=== PATIENT | female | born 1950 | race Caucasian/White ===

== ENCOUNTER 2019-06-18 10:35 | Outpatient (CLI) | payer MEDICARE ==
--- NOTE | 2019-06-18 11:44 | CT ---
CT OF ABDOMEN AND PELVIS PERFORMED WITH CONTRAST ENHANCEMENT: HISTORY: Abdominal pain. It started in May with bloating. The patient also has a history of hysterectomy an d a benign tumor removed from the abdomen in 2014. COMPARISON: None. FINDINGS: The lung bases are clear. Small hypodensities within the left lobe of the liver most compatible with cysts. Also a small hypod ense lesion in the right lobe near the gallbladder is also seen also most compatible with a cyst. Th e spleen pancreas regions are unremarkable. There is a subtle area of decreased attenuation near the gallbladder neck. This could represent a small stone in this region. Ultrasound would be required for assessment. Right and left adrenal glands and right and left kidneys are normal in size. There is no significant periaortic or mesenteric lymphadenopathy. There are no bowel wall abnormalities noted. CT OF PELVIS PERFORMED WITH CONTRAST ENHANCEMENT: No adenopathy, mass, or free fluid. Post-hysterectomy changes are seen. The appendix appears unrema rkable. IMPRESSION: 1. Benign-appearing hepatic cysts. 2. No acute abnormalities of the abdomen or pelvis. 3. Questionable small gallstone. POS: [facility]
== END 2019-06-18 10:36 | disposition home or self-care (01) ==
LOC: BICCT 10:35
PROVIDERS: ATTEND Family Medicine
DX: R10.13 Epigastric pain (principal); K76.89 Other specified diseases of liver
CPT/HCPCS: 74177

== ENCOUNTER 2019-06-23 11:07 | Outpatient (CLI) | payer MEDICARE ==
--- NOTE | 2019-06-23 14:28 | MMO ---
Bilateral MAMMO Bilat Screen [facility]. CLINICAL HISTORY: Patient is 69 years old and is seen for screening. The patient has no family history of breast cancer. The patient has no personal history of cancer. VIEWS: The views performed were: bilateral craniocaudal with tomosynthesis and bilateral mediolateral oblique with tomosynthesis. MAMMOGRAM FINDINGS: The breasts are heterogeneously dense, which could obscure a lesion on mammography. There are stable benign appearing calcifications seen in both breasts. There are no suspicious masses, suspicious calcifications, or new areas of architectural distortion. IMPRESSION: THERE IS NO MAMMOGRAPHIC EVIDENCE OF MALIGNANCY. A ROUTINE FOLLOW-UP MAMMOGRAM IN 1 YEAR IS RECOMMENDED. THE RESULTS OF THIS EXAM WERE SENT TO THE PATIENT. ACR BI-RADS Category 2 - Benign finding MAMMOGRAPHY NOTE: 1. A negative mammogram report should not delay a biopsy if a dominant of clinically suspicious mass is present. 2. Approximately 10% to 15% of breast cancers are not detected by mammography. 3. Adenosis and dense breasts may obscure an underlying neoplasm. Reported by: OBED GOLDSTEIN MD Electonically Signed: [id number]
== END 2019-06-23 11:08 | disposition home or self-care (01) ==
LOC: BICMAMMO 11:07
PROVIDERS: ATTEND Family Medicine
DX: Z12.31 Encounter for screening mammogram for malignant neoplasm of breast (principal)
CPT/HCPCS: 77063; 77067

== ENCOUNTER 2019-08-14 08:23 | Outpatient (CLI) | payer MEDICARE ==
--- NOTE | 2019-08-14 09:13 | CT ---
CT Aortic Dissection Protocol History: Pain. R 10.13 epigastric pain Comparison: CT abdomen and pelvis June 18, 2019 Findings: The aortic contour is nonaneurysmal. No dissection. No pericardial effusion. Right and left pulmonary arteries are mildly dilated suggesting pulmonary arterial hypertension. There is a hypodensity of the superior right lobe of thyroid first nonemergent ultrasound is recommen ded. There are multiple hepatic cysts. Due to the arterial phase of contrast there is hyperenhancement of the gallbladder mucosal as well as focal fatty sparing along the gallbladder fossa. Mild hypertrophy of the adrenal glands. No hydronephrosis. The superior mesenteric artery, celiac trunk, and inferior mesenteric arteries are patent. Renal atif monica are patent. No free intraperitoneal gas or fluid in the abdomen. No thoracic or lumbar spine acute compression de formity. Chronic appearing superior endplate height loss at T12. Mild scarring in the lung apices. No suspicious pulmonary nodule. No pneumothorax. No effusion. No co nsolidation. Impression: 1. No aortic dissection or aneurysm. 2. Hypodensity superior right posterior thyroid for which nonemergent ultrasound recommended. 3. Benign simple cysts of the liver. 4. Linear area of fatty sparing along the gallbladder fossa. 5. No acute intrathoracic abnormality.
[2019-08-14] MEDS ORDERED: Iopamidol 370 76% 100 ML VIAL ONE (12:44)
== END 2019-08-14 08:24 | disposition home or self-care (01) ==
LOC: CT 08:23
PROVIDERS: ATTEND Family Medicine
DX: R10.13 Epigastric pain (principal); N28.1 Cyst of kidney, acquired
CPT/HCPCS: 71275; 72191; 74175; 82565; Q9967

== ENCOUNTER 2019-08-21 14:12 | Outpatient (CLI) | payer MEDICARE ==
--- NOTE | 2019-08-21 15:42 | ULT ---
THYROID ULTRASOUND: INDICATION: Abnormal thyroid lesion found on recent CT evaluation. COMPARISON: CT aortic dissection protocol dated 08/14/2019. FINDINGS: The right thyroid lobe measures 5.5 x 2.0 x 1.6 cm. The left thyroid lobe measured 4.5 x 1.9 x 1.3 c m. The thyroid isthmus measured 4.4 mm. There are multiple small nodules seen throughout both thyroid glands. One of the largest nodules cor responds to the CT abnormality and is seen within the superior pole of the right thyroid lobe measuri ng 1.9 x 1.9 x 1.4 cm. This lesion is predominantly hyperechoic, well-circumscribed, wider than tall , without associated calcifications consistent with a TIRADS 3 lesion. Other additional smaller JOSE ALEJANDRO DS 3 lesions are seen within the right thyroid lobe. Two additional nodules are seen within the mid right gland measuring 5 x 5 mm. An additional nodule seen within the mid to lower right thyroid glan d measures 7.8 x 4.9 mm. There is a 7 mm and 3 mm nodule within the superior pole left thyroid lobe. Additional 4 mm thyroid nodule is seen within the superior to mid left thyroid lobe. IMPRESSION: 1. Multinodular goiter. 2. TIRADS 3 lesion involving the superior pole of the right thyroid lobe corresponds to the abnormal ity seen on the CT aortic dissection protocol examination. Due to its size, would recommend followup thyroid ultrasound in 1 year. The other smaller thyroid lesions denoted in the examination require no ultrasound followup. POS: [facility]
== END 2019-08-21 14:13 | disposition home or self-care (01) ==
LOC: BICULT 14:12
PROVIDERS: ATTEND Family Medicine
DX: E04.2 Nontoxic multinodular goiter (principal); E07.89 Other specified disorders of thyroid
CPT/HCPCS: 76536

== ENCOUNTER 2019-09-04 03:32 | Inpatient (IN) | payer MEDICARE ==
[2019-09-04] MEDS ORDERED: Aspirin Chewable 81 MG TAB ONE (03:45)
[2019-09-04 03:50] LABS: #Basophils 0.1 thou/uL (0.0-0.2); #Eosinphils 0.3 thou/uL (0.0-0.7); #Lymphocytes 5.3 thou/uL (1.20-3.40); #Neutrophils 6.2 thou/uL (1.40-6.50); %Eosinophils 2.3 % (0.0-10.0); %Lymphocytes 40.9 % (21.0-51.0); %Monocytes 7.6 % (0.0-10.0); %Neutrophils 48.2 % (42.0-75.0); Hemoglobin 15.9 g/dL (12.0-16.0); Mean Corpuscular HGB CONC 33.1 g/dL (32.0-36.0); Mean Corpuscular Hemoglobin 30.4 pg (27.0-31.0); Mean Corpuscular Volume 91.6 fL (78.0-98.0); Mean Platelet Volume 7.7 fL (7.4-10.4); Platelet Count 380 thou/uL (130-400); RBC Distribution Width 12.1 % (11.5-14.5); Red Blood Cell (RBC) Count 5.23 mill/uL (4.20-5.40); White Blood Cell (WBC) Count 12.9 thou/uL (4.8-10.8)
[2019-09-04 04:14] LABS: ALT (SGPT) 12 U/L (8-55); AST (SGOT) 14 U/L (5-34); Albumin 4.5 g/dL (3.4-4.8); Alkaline Phosphatase 77 U/L (40-110); Anion Gap 14 mmol/L (10-20); BUN (Urea Nitrogen) 12 mg/dL (9.8-20.1); Bilirubin, Total 0.4 mg/dL (0.2-1.2); CK (CPK) 47 U/L (29-168); Calc. Creatinine Clearance 0 mL/min (70-130); Carbon Dioxide 26 mmol/L (23-31); Chloride 105 mmol/L (98-107); Estimated GFR-MDRD 64; Globulin 3.2 g/dL (2.4-3.5); Glucose 107 mg/dL (80-115); Lipase 43 U/L (8-78); Potassium 3.9 mmol/L (3.5-5.1); Protein, Total 7.7 g/dL (6.0-8.3); Sodium 141 mmol/L (136-145)
[2019-09-04] MEDS ORDERED: Ondansetron PF 4 MG/2 ML Vial ONE ×2 (04:29→04:41)
[2019-09-04 05:31] VITALS: BMI 25.4
[2019-09-04 05:33] LABS: Bacteria/HPF None Seen HPF (None Seen); Bilirubin Negative (Negative); Blood, Urine Trace (Negative); Clarity Clear (Clear); Glucose, Urine (Dipstick) Normal (Negative); Leukocyte Negative Leu/uL (Negative); Nitrite Negative (Negative); Protein, Urine (Dipstick) Negative (Neg-Trace); RBC/HPF 0-3 HPF (0-3); Squamous Epithelial 0-3 HPF (0-3); Urobilinogen Normal mg/dL (Less than 2); WBC/HPF 0-3 HPF (0-3)
[2019-09-04 07:12] LABS: Troponin I Less than 0.010 ng/mL (< 0.028)
[2019-09-04] MEDS ORDERED: HYDROcodone/Acetaminophen 5/325 mg Tablet PO PRN (07:42)
[2019-09-04] MEDS ORDERED: Ondansetron PF 4 MG/2 ML Vial IVP PRN (07:46)
--- NOTE | 2019-09-04 08:13 | RAD ---
SINGLE VIEW CHEST: Date: 09/01/19 COMPARISON: 02/16/17. HISTORY: Mid sternal chest pain. FINDINGS: Single view of the chest shows a normal sized cardiomediastinal silhouette. There is no evidence of c onsolidation, mass, or pleural effusion. The bones are unremarkable. IMPRESSION: No evidence of acute cardiopulmonary disease. POS: [facility]
[2019-09-04] MEDS ORDERED: Sodium Chloride 0.9% (PF) 10 ML VIAL FS PRN (08:15)
[2019-09-04] MEDS ORDERED: Pantoprazole 40 MG VIAL IVP SCH (09:00)
[2019-09-04] MEDS: Sodium Chloride 0.9% 1,000 ML IV SCH ×2 (10:06→21:17)
[2019-09-04] MEDS: Pantoprazole 40 MG VIAL IVP SCH ×2 (10:06→19:52)
[2019-09-04 10:19] LABS: Troponin I Less than 0.010 ng/mL (< 0.028)
--- NOTE | 2019-09-04 10:29 | HP ---
CHIEF COMPLAINT: Nausea, vomiting, abdominal pain. HISTORY OF PRESENT ILLNESS: The patient is a 69-year-old female, who is admitted to the hospital with above-mentioned complaints. Apparently, she started having the same kind of pain in May. She went to her primary care physician, Dr. Yin, who did a CT of the abdomen, which showed some questionable changes in her gallbladder, but nothing major. Subsequently, she had few episodes of similar pain, which was associated with some radiation of the pain to her back, between her shoulders, shoulder blades, and she had followed up with Dr. Yin, who did a CT angiogram on her, which came back negative, which showed some thyroid nodules, which she is going to have followup with him with another sonogram for evaluation. She denied any fever or chills. There was no any shortness of breath. Her surrogate decision maker is the patient's daughter, Angie. MEDICATION: Omeprazole 20 mg once a day. PAST MEDICAL HISTORY: Osteoporosis. PAST SURGICAL HISTORY: 1. Abdominal mass removed in 2014, benign. 2. Hysterectomy. 3. Bone removed from the right hip and placed in the right arm for graft. SOCIAL HISTORY: She smokes about half a pack of cigarettes per day for 40 to 50 years. She denies use any of illicit drugs. She drinks socially. ALLERGIES: SHE IS NOT ALLERGIC TO ANYTHING. FAMILY HISTORY: Positive for cardiovascular disease. REVIEW OF SYSTEMS: All 14 systems were reviewed and they were negative except for symptoms mentioned in HPI. PHYSICAL EXAMINATION: VITAL SIGNS: Blood pressure is 132/63, pulse is 53, respirations 22, temperature is 97.5, O2 saturation is 97 on room air. Her pain level is around 7. HEENT: Her head is atraumatic and normocephalic. Eyes are PERRLA. Sclerae are nonicteric. Conjunctivae are reddish. Oral mucosa is slightly dry. NECK: Supple. LUNGS: Clear. HEART: S1 and S2, normal. No S3. No S4. ABDOMEN: Tender in the mid epigastric area with some guarding, her abdomen is quite tight and also tender in the left lower quadrant. EXTREMITIES: No clubbing, cyanosis, or edema. NEUROLOGIC: She follows my commands. She moves her all 4 extremities. There are no any motor or sensory deficits. LABORATORY DATA: Showed white count of 12.9. The rest of chemistry is within normal limits. Urinalysis showed trace of blood. EKG personally reviewed by me showed normal sinus rhythm, no ischemic changes. Chest x-ray personally reviewed by me and it did not show any acute cardiovascular abnormalities. IMPRESSION: Recurrent nausea, vomiting, and abdominal pain, which sounds like peptic ulcer disease to me. We will start her on IV PPI and get aircraft engine technician involved. We will have her on IV fluids and start her on hydrocodone for pain relief and also we will do ultrasound of the abdomen and she will be on clear liquids. Job ID: [id number]
[2019-09-04] MEDS ORDERED: Lidocaine 1% PF 5 ML VIAL ONE (11:38)
[2019-09-04] MEDS ORDERED: PROPOFOL 200 MG/20 ML VIAL ONE (11:38)
--- NOTE | 2019-09-04 11:57 | ULT ---
ABDOMINAL ULTRASOUND: HISTORY: Abdominal pain. TECHNIQUE: Real-time imaging of the upper abdomen was performed. FINDINGS: This shows echogenic foci with shadowing within the gallbladder, consistent with multiple stones. The gallbladder wall is slightly thickened, in the 4 mm range. The common duct measures 5 mm. The liver is 15.7 cm in length. There are couple of small, approximately 1 cm cysts present. The spleen measur es 9.2 cm. The pancreas is partially obscured. The abdominal aorta and IVC regions are unremarkable. The right and left kidneys are within normal limits in size and not obstructed. IMPRESSION: Multiple cholelithiasis with a normal caliber common duct. POS: [facility]
--- NOTE | 2019-09-04 13:18 | CON ---
DATE OF CONSULTATION: 09/04/2019 REQUESTING PHYSICIAN: Nirmal Jean MD REASON FOR CONSULTATION: Chest and abdominal pain. HISTORY OF PRESENT ILLNESS: Britt Joyner is a 69-year-old woman, who was admitted to the hospital early this morning with persistent worsening chest pain and abdominal pain. She reports no significant past gastrointestinal history. She had a large ovarian cyst with torsion and underwent surgery for this back in 2014 elsewhere. She had a hysterectomy prior to that. Back at the end of May, she started having episodes of chest pain radiating to the back and also involving the epigastrium. There has been associated nausea and occasional nonbloody emesis with this. She had several episodes in May, a couple of episodes in June and July, but then throughout the month of August, she was having episodes far more frequently getting more severe. In the past few days, the pain has been more constant and this prompted her presentation. She has had some workup over the past few months. On 06/18/2019, CT of the abdomen and pelvis just demonstrated some benign hepatic cyst as well as a gallstone in the gallbladder lumen, but was otherwise normal. On 08/14/2019, CT angiogram was essentially negative. She was trialed on omeprazole 20 mg daily for the past couple of months. She says she really cannot tell that this is making any difference. She denies classic heartburn or dysphagia or change in bowel habits. Upon presentation, she has a mild leukocytosis with WBC 12.9, but otherwise normal CBC and CMP, normal lipase. Chest x-ray shows no acute processes and an ultrasound shows cholelithiasis, gallbladder wall of 4 mm, normal common bile duct of 5 mm. She has been n.p.o. since early this morning. REVIEW OF SYSTEMS: Full review of systems including constitutional, head, eyes, ears, nose, throat, GI, , cardiovascular, respiratory, musculoskeletal, and neurologic systems are negative except as noted in the HPI. PAST MEDICAL HISTORY: Osteoporosis, hysterectomy, and surgery to remove giant ovarian cyst with torsion back in 2014. ALLERGIES: NO KNOWN DRUG ALLERGIES. OUTPATIENT MEDICATIONS: Omeprazole 20 mg daily. FAMILY HISTORY: Positive for cardiovascular disease. SOCIAL HISTORY: She smokes a half a pack cigarettes per day for the past 40 to 50 years. Social alcohol use. No illicit drug use. PHYSICAL EXAMINATION: VITAL SIGNS: Temperature 97.5, pulse 57, blood pressure 89/48, and 97% oxygen saturation on room air. GENERAL: A 69-year-old woman, lying in bed comfortably, in no acute distress. SKIN: No jaundice. No rashes were palpable. HEENT: Eyes, no scleral icterus. Extraocular movements intact. ENT, mucous membranes moist. No oral lesions. LYMPH: No submandibular or supraclavicular lymphadenopathy. THYROID: Nontender to palpation. HEART: Regular rate and rhythm. LUNGS: Clear to auscultation bilaterally. ABDOMEN: Surgical scar well-healed in midline lower abdomen. Bowel sounds are present. The abdomen is soft. There is some tenderness to palpation in the epigastrium, but no guarding or rebound tenderness. EXTREMITIES: No peripheral edema. VESSELS: Radial pulses 2+ bilaterally. NEURO: Cranial nerves 2 through 12 intact bilaterally. No focal deficits. LABORATORY STUDIES: WBC 12.9, hemoglobin 15.9, and platelets 380. Sodium 141, potassium 3.9, BUN 12, creatinine 0.87, total bilirubin 0.4, alkaline phosphatase 77, AST 14, ALT 12, albumin 4.5, and lipase 43. Troponin negative x2. Urinalysis negative. IMAGING STUDIES: Chest x-ray shows no acute processes. Abdominal ultrasound shows cholelithiasis. There is some mild gallbladder wall thickening to 4 mm. Normal common bile duct of 5 mm in diameter. Prior CT imaging as detailed in the HPI. ASSESSMENT AND PLAN: 1. Chest pain, recurrent. 2. Epigastric pain. 3. Nausea and vomiting. Symptoms were all escalating over the past several months despite omeprazole 20 mg daily. I note imaging demonstrates cholelithiasis, but there is no LFT elevation or lipase. Consider upper GI mucosal pathology. We will plan for diagnostic esophagogastroduodenoscopy and try to get this done later this afternoon. If this yields an explanation for her symptoms, we will treat accordingly. If the esophagogastroduodenoscopy was completely normal, then I would consider surgical evaluation for consideration of cholecystectomy. Thank you for the consultation. Further recommendations following endoscopy. Please call anytime with questions or concerns. Job ID: [id number]
--- NOTE | 2019-09-04 16:24 | OP ---
DATE OF PROCEDURE: 09/04/2019 CHEMIC MANGLER SURGEON: None. PROCEDURE PERFORMED: Esophagogastroduodenoscopy with biopsies. INDICATION: 1. Chest pain, atypical. 2. Epigastric pain. 3. Nausea and vomiting. MEDICATIONS: See Anesthesia record. FINDINGS: After discussion of the risks, benefits, and alternatives of the procedure, informed consent was obtained and witnessed. Pre-endoscopic cardiopulmonary examination was satisfactory. Time-out was performed before sedation was achieved. Sedation was achieved with Anesthesia assistance in the endoscopy unit. A Pentax adult upper endoscope was placed into the oropharynx and passed through the cricopharyngeus under direct visualization. The esophageal mucosa appeared normal throughout with a normal-appearing Z-line. The endoscope was advanced into the stomach. Forward and retroflexed views of the entire gastric mucosa were obtained. The gastric mucosa showed some mild erythema and friability in a patchy distribution in the gastric body. There were no erosions or ulcerations noted. I obtained biopsies from the gastric antrum and body to rule out H. pylori infection. The endoscope was advanced beyond the pylorus and into the first and second portions of the duodenum, which appeared normal. There were no endoscopic findings to correlate with the severity of the patient's symptoms. The upper endoscope was completely withdrawn and the patient allowed to recover. The patient tolerated the procedure well. There were no immediate postprocedure complications. IMPRESSION: 1. Mild nonerosive gastritis in the gastric body. Biopsied to rule out H. pylori. 2. Otherwise normal esophagogastroduodenoscopy. RECOMMENDATIONS: 1. Advance diet. 2. Continue daily PPI. 3. Follow up gastric biopsies. If H. pylori is present, treat with triple therapy and confirm eradication. 4. There were no endoscopic findings to explain the severity of the patient's symptoms. Consider surgical referral for consideration of cholecystectomy, given the ultrasound finding of cholelithiasis. Job ID: [id number]
[2019-09-04] MEDS: Senokot S 8.6-50 MG TAB PO SCH (19:51)
[2019-09-04] MEDS ORDERED: FLU VACC TS2019-20(65YR UP)/PF 180 MCG/0.5 ML SYRINGE IM ONE (21:00)
[2019-09-05] MEDS: Senokot S 8.6-50 MG TAB PO SCH ×2 (09:34→20:11)
[2019-09-05] MEDS: Pantoprazole 40 MG VIAL IVP SCH ×2 (09:34→20:12)
[2019-09-05] MEDS: Sodium Chloride 0.9% 1,000 ML IV SCH ×3 (09:34→22:26)
[2019-09-05] MEDS ORDERED: Dexamethasone 20 MG/5 ML VIAL ONE (10:42)
[2019-09-05] MEDS ORDERED: Glycopyrrolate 0.2 MG/ML 5 ML SYRINGE ONE (10:42)
[2019-09-05] MEDS ORDERED: Rocuronium Bromide 10 MG/ML (10ML VIAL) ONE (10:42)
[2019-09-05] MEDS ORDERED: PROPOFOL 200 MG/20 ML VIAL ONE (10:42)
[2019-09-05] MEDS ORDERED: Ondansetron PF 4 MG/2 ML Vial ONE (10:42)
[2019-09-05] MEDS ORDERED: Lidocaine 1% PF 5 ML VIAL ONE (10:42)
[2019-09-05] MEDS ORDERED: Bupivacaine/Epinephrine 0.25% 30 ML VIAL ONE (12:42)
[2019-09-05] MEDS ORDERED: Midazolam HCl 2 mg/2 ml Vial ONE (12:51)
[2019-09-05] MEDS ORDERED: Sodium Chloride 0.9% 100 ML ONE (13:07)
[2019-09-05] MEDS ORDERED: cefOXitin 2 GM VIAL ONE (13:07)
[2019-09-05] MEDS ORDERED: Fentanyl 100 MCG/2 ML VIAL ONE ×2 (13:23→15:04)
--- NOTE | 2019-09-05 14:04 | CON ---
DATE OF CONSULTATION: 09/05/2019 REQUESTING PHYSICIAN: Nirmal Jean MD HISTORY OF PRESENT ILLNESS: This is a 69-year-old woman, who presented to the emergency department with recurrent postprandial epigastric right upper quadrant abdominal pain over the last 4 months. The pain was usually aggravated by eating and awakens the patient in the morning. Over the last 1 month, the pain has become more frequent and intense, usually epigastric in nature, radiating to the back and right shoulder. The patient presented yesterday with severe epigastric abdominal pain, which started shortly before breakfast. This was associated with multiple episodes of nausea and nonbilious emesis. The patient had dinner the previous night consisting of hamburgers and salad with ranch dressing. She endorses recent abdominal bloating and frequent flatulence. She had a normal bowel movement, however, yesterday. The patient denies any fevers or chills. She underwent upper endoscopy yesterday, which only showed mild erosive gastritis without any other significant pathology. PAST MEDICAL HISTORY: Pertinent for osteoporosis and gastroesophageal reflux disease. PAST SURGICAL HISTORY: Pertinent for total abdominal hysterectomy in 1979 and right salpingo-oophorectomy in 2014 for an ovarian torsion. Other pertinent surgical history includes repair of forearm deformity using a bone graft from the right hip. SOCIAL HISTORY: She is retired and admits to smoking about half pack of cigarettes per day for over 30 years. She admits to occasional intake of ethanol in moderate amount and denies any illicit drug abuse. FAMILY HISTORY: Noncontributory for this patient's age. PREHOSPITALIZATION MEDICATION: Includes omeprazole 40 mg p.o. daily. ALLERGIES: THE PATIENT DENIES ANY KNOWN DRUG ALLERGIES. REVIEW OF SYSTEMS: Ten-point review of systems essentially unremarkable, except as stated in past medical history and chief complaint. PHYSICAL EXAMINATION: GENERAL: This reveals a 69-year-old normally developed woman, who is otherwise coherent, interactive, and appears stated age. The patient is alert and oriented x3, appears to be in no acute distress at the time of my evaluation. VITAL SIGNS: Today includes blood pressure 102/49, pulse 58, respiratory rate 16, temperature 97.4 degrees Fahrenheit, oxygen saturation 98% on room air. HEENT: Reveals normocephalic and atraumatic. Pupils are equal, round, reactive to light and accommodation. Extraocular muscles are intact bilaterally. She has no scleral icterus present. HEART: Reveals regular rate and rhythm. No murmurs or gallops auscultated. LUNGS: Clear to auscultation bilaterally. Her breathing is regular and nonlabored. ABDOMEN: Soft with moderate epigastric to right upper quadrant tenderness to palpation. LIVER AND SPLEEN: Nonpalpable below costal margin. EXTREMITIES: Reveal 2+ radial and pedial pulses bilaterally. No ankle edema is present. NEUROLOGIC: Reveals no focal deficits present. LABORATORY FINDINGS: Include a CBC yesterday with 12,900 white blood cells, hemoglobin and hematocrit 15.9 and 47.9 respectively. Platelet count 380,000. Metabolic profile; sodium is 141, potassium is 3.9, chloride is 105, bicarb is 26, BUN is 12, creatinine is 0.87, glucose is 107. Total bilirubin is 0.4, AST and ALT are normal at 14 and 12 respectively. Alkaline phosphatase and lipase are also normal at 77 and 43 respectively. IMAGING STUDIES: I have personally reviewed the abdominal ultrasound, which is remarkable for multiple intraluminal gallstones. Gallbladder wall is thickened. There is no pericholecystic fluid noted. Common bile duct is normal for this patient's age at 5.1 mm in diameter. IMPRESSION: Acute on chronic cholecystitis with cholelithiasis. PLAN: Laparoscopic cholecystectomy. Above findings and plan have been discussed with the patient and her adult daughter at bedside. I have informed the patient of the risks and benefits of the proposed surgery to include, but not limited to bleeding, infection, injury to bile duct or surrounding structures. The patient indicates understanding of information given. I have answered her questions. The patient is going to consent for the surgical intervention. Thank you again, Dr. Jean, for allowing me the opportunity to participate in the care of this patient. Job ID: [id number]
[2019-09-05] MEDS ORDERED: SUGAMMADEX SODIUM 200 MG/2 ML VIAL ONE (14:44)
[2019-09-05] MEDS ORDERED: Meperidine HCl/PF 25 MG/ML VIAL SLOW IVP PRN (14:58)
[2019-09-05] MEDS ORDERED: Promethazine HCl 25 MG/ML VIAL IM PRN (14:58)
[2019-09-05] MEDS ORDERED: Promethazine HCl 25 MG/ML VIAL SLOW IVP PRN (14:58)
[2019-09-05] MEDS ORDERED: PACU-Morphine 4MG/ML VIAL SLOW IVP PRN (14:58)
--- NOTE | 2019-09-05 15:50 | OP ---
DATE OF PROCEDURE: 09/05/2019 PREOPERATIVE DIAGNOSES: 1. Acute on chronic cholecystitis. 2. Cholelithiasis. POSTOPERATIVE DIAGNOSES: 1. Acute on chronic cholecystitis. 2. Cholelithiasis. PROCEDURE PERFORMED: Laparoscopic cholecystectomy. ANESTHESIA: General endotracheal. ESTIMATED BLOOD LOSS: 10 mL. FLUIDS GIVEN: 2000 mL crystalloids. COUNTS: Sponge and instrument counts were verified as correct x2. COMPLICATIONS: None apparent. INDICATIONS FOR OPERATION: A 69-year-old woman with recurrent postprandial epigastric right upper quadrant abdominal pain, who was brought to the operating room today for cholecystectomy given findings of acute cholecystitis with cholelithiasis. Findings are consistent with distended gallbladder in the usual anatomic location, partially encased by omental adhesions. Additionally, multiple small bowel adhesions are encountered involving the intra-abdominal wall along the line of the previous abdominal operation. DESCRIPTION OF PROCEDURE: Informed consent was obtained from the patient, who was brought to the operating room and placed in supine position. Following general anesthesia, abdomen was sterilely prepped and draped in usual fashion. Skin below the umbilicus was infiltrated with 0.25% Marcaine with epinephrine. A small curvilinear infraumbilical incision was made using 11 scalpel. Umbilical stalk grasped with Curt and elevated. Veress needle was inserted through the incision and placed in the peritoneal cavity through which the abdomen was insufflated with 3 L of CO2 gas. Intra-abdominal pressure noted at 2 mmHg. Following abdominal insufflation, Veress needle was removed and a 5 mm trocar introduced using a Visiport under laparoscopy. Laparoscopy confirmed proper placement of the port, no injuries to underlying structures. Additional laparoscopy revealed gallbladder in the usual anatomic location, partially encased by omental adhesions. Under direct laparoscopy, a 12 mm epigastric and two 5 mm right lateral subcostal ports were placed after the overlying skin were infiltrated with 0.25% Marcaine with epinephrine. Appropriate incision was made. The patient was placed in a reverse Trendelenburg position, rotated to her left. I introduced a Prestige grasper through the right lateral subcostal port grasping the fundus of the gallbladder, which was elevated cephalad. Using [place] dissector with cautery, omental adhesions were taken down off the gallbladder. A second Prestige grasper was introduced through the right medial subcostal port grasping the Sid's pouch, which was retracted laterally. Cystic duct was carefully dissected free from surrounding structures at the triangle of Calot. The duct was divided between clips applying 2 clips proximally and one clip at the junction of the cystic duct and gallbladder. Cystic artery was dissected free from surrounding structures and divided between clips in a similar fashion. The gallbladder itself was removed from the liver bed using cautery with good hemostasis. Gallbladder was delivered off the abdominal cavity using an EndoCatch. Operative site was inspected for good hemostasis. Finding no other pathology, laparoscopy was terminated. Operative site was irrigated with saline. Fascia of the epigastric port was closed using 0 Vicryl suture and endo-closure device on the laparoscopy. Abdomen was desufflated. All ports and instruments removed and accounted for. Skin incision was closed using 4-0 Monocryl suture in subcuticular fashion. Dermabond was applied over incisional closure. The patient tolerated the operation without any apparent complication and was returned to recovery room in satisfactory condition. Job ID: [id number]
[2019-09-05] MEDS: Acetaminophen 500 MG TAB PO SCH ×2 (16:28→20:11)
[2019-09-05 16:42] LABS: Hemoglobin 13.9 g/dL (12.0-16.0); Mean Corpuscular HGB CONC 32.7 g/dL (32.0-36.0); Mean Corpuscular Hemoglobin 30.5 pg (27.0-31.0); Mean Platelet Volume 7.9 fL (7.4-10.4); Platelet Count 304 thou/uL (130-400); RBC Distribution Width 12.1 % (11.5-14.5); Red Blood Cell (RBC) Count 4.55 mill/uL (4.20-5.40); White Blood Cell (WBC) Count 11.9 thou/uL (4.8-10.8)
[2019-09-05 17:13] LABS: Band 7 % (5-11); Eosinophils 1 % (0-10); Lymphocytes 12 % (21-51); MDiff Complete? YES; Monocytes 2 % (0-10); Neutrophil 76 % (42-75); Platelet Morphology Comment Appears Adequate; RBC Morphology Normal
--- NOTE | 2019-09-05 17:39 | PRG ---
DATE OF SERVICE: 09/05/2019 SUBJECTIVE: The patient is seen and examined at bedside. She just came back from OR from her laparoscopic cholecystectomy. She complains about some abdominal soreness in the area, where she had surgery. Otherwise, she is feeling okay. OBJECTIVE: VITAL SIGNS: Blood pressure is 126/57, pulse is 60, temperature is 97.4, respirations 16, and O2 saturation is 95% on 3 L by nasal cannula. HEENT: Her pupils are responding to light properly. Sclerae are nonicteric. LUNGS: Clear. HEART: S1 and S2 normal. ABDOMEN: Mildly distended. Tender to moderate palpation, three points of entry, not bleeding. Bowel sounds not audible. EXTREMITIES: No clubbing, cyanosis, or edema. NEUROLOGIC: She is alert and oriented x4. There is no any motor or sensory deficits. LABORATORY DATA: Labs from this morning showed white count of 11.9, hemoglobin 13.9, hematocrit 42.3, platelet count is 304,000. IMAGING STUDIES: Abdominal ultrasound was done, which showed multiple cholelithiasis with normal caliber common duct. IMPRESSION: 1. Recurrent abdominal pain, status post EGD with basically negative findings. 2. Acute on chronic cholecystitis. 3. Cholelithiasis, status post laparoscopic cholecystectomy. 4. History of osteoporosis. PLAN: Continue observation overnight. Postop care per General Surgery Team, but I believe that she is going to start having diet and it will be advanced as soon as she is doing fine. Tomorrow, she should be able to go home. Job ID: [id number]
[2019-09-05] MEDS: Ketorolac Tromethamine 30 MG/ML VIAL IVP SCH ×2 (19:21→23:23)
[2019-09-05] MEDS: traMADol HCl 50 MG TAB PO PRN (22:19)
[2019-09-06] MEDS: traMADol HCl 50 MG TAB PO PRN ×4 (01:13→22:14)
[2019-09-06] MEDS: Melatonin 3 MG TAB PO PRN (01:15)
[2019-09-06] MEDS: Acetaminophen 500 MG TAB PO SCH ×2 (02:12→08:17)
[2019-09-06] MEDS ORDERED: Morphine 2 MG/ML SYRINGE SLOW IVP SCH (05:15)
[2019-09-06] MEDS: Ketorolac Tromethamine 30 MG/ML VIAL IVP SCH ×3 (05:42→17:32)
[2019-09-06 06:19] LABS: ALT (SGPT) 58 U/L (8-55); AST (SGOT) 38 U/L (5-34); Alkaline Phosphatase 64 U/L (40-110); Anion Gap 11 mmol/L (10-20); BUN (Urea Nitrogen) 8 mg/dL (9.8-20.1); Bilirubin, Direct 0.2 mg/dL (0.1-0.3); Bilirubin, Total 0.5 mg/dL (0.2-1.2); Calc. Creatinine Clearance 64 mL/min (70-130); Calcium 8.5 mg/dL (7.8-10.44); Carbon Dioxide 21 mmol/L (23-31); Chloride 111 mmol/L (98-107); Estimated GFR-MDRD 75; Glucose 137 mg/dL (80-115); Potassium 4.1 mmol/L (3.5-5.1); Protein, Total 6.7 g/dL (6.0-8.3); Sodium 139 mmol/L (136-145)
[2019-09-06] MEDS: Senokot S 8.6-50 MG TAB PO SCH ×2 (08:18→20:50)
[2019-09-06] MEDS: Pantoprazole 40 MG VIAL IVP SCH ×2 (08:18→20:50)
[2019-09-06] MEDS ORDERED: Ketorolac Tromethamine 30 MG/ML VIAL ONE (09:12)
[2019-09-06] MEDS ORDERED: Ketorolac Tromethamine 30 MG/ML VIAL IVP SCH (09:15)
[2019-09-06] MEDS: Sodium Chloride 0.9% 1,000 ML IV SCH ×2 (10:46→23:08)
--- NOTE | 2019-09-06 12:19 | RAD ---
PORTABLE AP CHEST: Date: 09/06/19 HISTORY: Abdominal pain. COMPARISON: 09/04/19. FINDINGS: This exam is obtained in a shallow depth of inspiration, which in combination with portable technique accentuates cardiac silhouette and bronchovascular markings. There is suggestion of increased densit y at the right lung base, which could be related to atelectasis or pleural effusion. Subsegmental ate lectasis is now present at the left lung base. No other interval change. IMPRESSION: Interval development of subsegmental atelectasis at the left lung base with suggestion of increased d ensity at the right lung base. This is also likely attributable to atelectasis; although, pleural eff usion cannot be excluded. Given shallow depth of inspiration, follow-up chest x-ray with better depth of inspiration is recommended. POS: OFF
--- NOTE | 2019-09-06 12:22 | RAD ---
AP ABDOMINAL RADIOGRAPH; Date: 09/06/19 HISTORY: Abdominal pain. COMPARISON: None. FINDINGS: The bowel gas pattern is overall nonspecific. Surgical clips overlie the right upper quadrant. Degene rative changes are seen in the spine. No suspicious calcifications are identified. IMPRESSION: Nonspecific bowel gas pattern. POS: OFF
--- NOTE | 2019-09-06 12:35 | CT ---
CT ANGIOGRAM THORAX WITH IV CONTRAST AND 3D RECONSTRUCTIONS: HISTORY: Chest pain as well as abdominal pain. Recent cholecystectomy. COMPARISON: CTA chest on 08/14/2019. FINDINGS: No filling defects are seen in the pulmonary arteries to suggest a pulmonary embolus. The thoracic aorta is normal in caliber without evidence of an aortic dissection. There is trace pleural effusion on the right. There are parenchymal changes seen dependently at each lung base, which is probably related to atelectasis. Atelectasis is also seen in the region of the li ngula. No discrete pulmonary nodule or mass is visualized. There is no evidence of lymphadenopathy. As noted on the prior examination there is a heterogeneous nodule seen involving the posterior aspect , superior portion of the thyroid gland, which measures 1.9 cm. There is partial visualization of subcutaneous emphysema in the epigastric region with linear densiti es present, likely related to recent post surgical changes. These findings are better visualized on C T abdomen. Subcentimeter hypodense lesions are seen in the left hepatic lobe, unchanged from the study on 2018 and are suggestive of cysts. IMPRESSION: 1. Heterogeneous node, right lobe of the thyroid gland. Non-emergent thyroid ultrasound is recommende d, as suggested on prior study. 2. No CT evidence of a pulmonary embolus. The thoracic aorta is normal in caliber without evidence of an aortic dissection. 3. Trace right pleural effusion with bibasilar parenchymal changes, likely related to bibasilar atele ctasis, greater on the right. POS: OFF
--- NOTE | 2019-09-06 12:42 | CT ---
CT ABDOMEN WITH IV CONTRAST: HISTORY: Abdominal pain after recent cholecystectomy. The patient also complains of chest pain and epigastric abdominal pain. COMPARISON: CTA abdomen on 08/14/2019. FINDINGS: As noted on the CTA chest, also obtained on this date, there is trace with pleural effusion with pare nchymal bibasilar densities present, probably attributable to atelectasis. Small, hypodense lesions are again seen in the left hepatic lobe, stable from prior study, as well as the study on 06/18/2019, and are suggestive of small hepatic cysts. Post cholecystectomy changes are now present. A tiny amount of fluid is seen adjacent to the right he patic lobe. There is no fluid collection seen in the gallbladder fossa and there is only minimal stra nding in this region, likely attributable to the recent post surgical changes. Within the anterior ab dominal wall, just to the right of midline, are foci of gas and stranding and a small amount of fluid , likely related to recent post surgical change. A single punctate focus of gas is seen anterior to t he liver, which is also likely attributable to post surgical changes. The spleen, pancreas, bilateral adrenal glands and kidneys demonstrate a normal CT appearance. There is subcutaneous emphysema and stranding in a periumbilical location with gas also seen within t he anterior aspect of the abdomen with a tiny amount of fluid within the mesentery, at the level of t he umbilicus, which is also likely related to recent post surgical changes. There is a low density ar ea in the more inferior aspect, right paracolic gutter, in the upper pelvis, incompletely imaged, and may represent a small amount of fluid or volume averaging with a loop of bowel. This is unable to be further evaluated. There is mild thickening involving a portion of the ascending colon, in the region of the hepatic fle xure. This is probably attributable to incomplete distention as opposed to colitis. Degenerative changes are seen in the spine. IMPRESSION: 1. Post surgical changes related to recent cholecystectomy. Trace amount of fluid adjacent to the genevieve er and in the right paracolic gutter. 2. Trace right pleural effusion with bibasilar parenchymal densities, probably related to bibasilar a telectasis. 3. Foci of gas within the abdomen is likely related to recent cholecystectomy. Clinical correlation i s recommended. 4. Suggested colonic wall thickening in the region of the hepatic flexure, which is probably related to incomplete distention. Colitis could not be entirely excluded. POS: OFF
[2019-09-06] MEDS ORDERED: ISOVUE-370 76%-LOCM 1 ML ONE (13:16)
[2019-09-06] MEDS: Piperacillin/Tazobactam 3.375 GM in Sodium Chloride 0.9% 100 ML IVPB SCH ×2 (14:03→20:49)
--- NOTE | 2019-09-06 14:05 | PRG ---
DATE OF SERVICE: 09/06/2019 SUBJECTIVE: The patient is seen and examined at the bedside. She was seen by Dr. Goldberg, for evaluation since she developed pain in the shoulder and abdomen. She had laparoscopic cholecystectomy done yesterday. OBJECTIVE: VITAL SIGNS: Blood pressure is 99/55, pulse is 82, respirations 20, O2 saturation is 92% on room air, temperature is 97.9. HEENT: Sclerae are nonicteric. Conjunctivae are pinkish. Oral mucosa is slightly dry. NECK: Supple. LUNGS: Clear. HEART: S1 and S2 are normal. ABDOMEN: Mildly distended. Tender in the epigastric area, mainly with some guarding in this area. Incisions for laparoscopy look good. Bowel sounds are sluggish. EXTREMITIES: No clubbing, cyanosis, or edema. NEUROLOGIC: She is alert and oriented x4. There are no any motor or sensory deficits. LABORATORY DATA: Sodium of 139, potassium 4.1, chloride 111, CO2 of 21, BUN 8, creatinine 0.76, glucose 137, AST 38, ALT 58. BNP 249.3. Troponin I less than 0.010. Serum total protein 6.7, albumin 4.0, cortisol 29.5. Abdominal x-ray showed nonspecific bowel gas pattern. Chest x-ray showed some atelectasis at the left lung base along with right lower lobe infiltrate, which could be representing a small pleural effusion. CT angiogram of the chest showed: 1. No PE. 2. Trace of the right pleural effusion with small bibasilar parenchymal changes. 3. Heterogeneous node in the right lobe of the thyroid gland. CT of the abdomen showed: 1. Postsurgical changes related to recent cholecystectomy and a trace amount of fluid adjacent to the liver and in the right paracolic gutter. 2. Trace right pleural effusion with bibasilar parenchymal densities, probably related to bibasilar atelectasis. 3. Foci of gas within the abdomen are likely related to recent cholecystectomy. 4. Suggested colonic wall thickening in the region of the hepatic flexure, which is probably related to incomplete distention. IMPRESSION: 1. Recurrent abdominal pain with nausea and vomiting, felt to be related to [id number] cholecystitis, status post laparoscopic cholecystectomy for cholelithiasis along with cholecystitis. 2. History of osteoporosis. 3. Recurrent abdominal pain postoperatively of unclear etiology at this point. Negative workup so far. The patient is supposed to have HIDA scan ordered by Dr. Goldberg, general surgeon. We will continue our workup, and we will continue pain management. Job ID: [id number]
[2019-09-06] MEDS: Acetaminophen 1,000 MG in Premix Bag 1 BAG IVPB SCH (17:34)
--- NOTE | 2019-09-06 17:53 | PRG ---
DATE OF SERVICE: 09/06/2019 SUBJECTIVE: Ms. Joyner is a 69-year-old woman, who is postoperative day #1, status post laparoscopic cholecystectomy. This morning, she is awake and alert, complaining of severe epigastric abdominal pain radiating to her right shoulder. This was associated with some dyspnea and wheezing. She received breathing treatment and that resolved the wheezing. She continued to have severe abdominal pain despite intravenous analgesics. She is making adequate urine for her age. OBJECTIVE: VITAL SIGNS: Her vital signs this morning include blood pressure 109/56, pulse 65, respiratory rate 20, temperature 97.3 degrees Fahrenheit, and oxygen saturation 91% on room air. HEENT: Pupils are equal, round, and reactive to light and accommodation. NECK: No jugular venous distention noted. HEART: Regular rate and rhythm. No murmurs or gallops auscultated. LUNGS: Clear to auscultation bilaterally. Breathing regular and nonlabored. ABDOMEN: Soft and exquisitely tender to palpation with gross rebound tenderness present. Bowel sounds are present, but hypoactive. Incisions are intact, clean, and dry. NEUROLOGIC: No focal deficits present. LABORATORY FINDINGS: CBC with 11,900 white blood cells, hemoglobin and hematocrit 13.9 and 42.3 respectively, and platelet count is 304,000. Differential count as follows; 76 segmented neutrophils, 7 bands, 12 lymphocytes, 2 monocytes, and 1 eosinophil. Metabolic profile; sodium 139, potassium 4.1, chloride is 111, bicarb 21, BUN 8, creatinine 0.76, and glucose 137. Total bilirubin 0.5, AST and ALT marginally elevated at 38 and 58 respectively, and alkaline phosphatase is normal at 64. CT scan of the chest was obtained today with contrast and excluded presence of any pulmonary embolism. CT scan of the abdomen and pelvis was also obtained, which reveals a scant amount of pneumoperitoneum and free fluid, not in excess of what should be expected postoperative day #1 from a laparoscopic procedure. ASSESSMENT AND PLAN: Given high index of suspicion for small-bowel injury in the presence of extensive amount of small bowel adhesions to the anterior abdominal wall, we will initiate antibiotic therapy and continue with serial physical examination as the patient's abdominal pain appears to be resolving. She is now tolerating a clear liquid diet and ambulating with minimum difficulty. Her vital signs have otherwise remained stable. No further surgical indication at this time. Job ID: [id number]
[2019-09-07] MEDS: Ketorolac Tromethamine 30 MG/ML VIAL IVP SCH ×2 (00:06→05:46)
[2019-09-07] MEDS: Acetaminophen 1,000 MG in Premix Bag 1 BAG IVPB SCH ×3 (00:07→12:53)
[2019-09-07] MEDS: Melatonin 3 MG TAB PO PRN (00:08)
--- NOTE | 2019-09-07 02:28 | PRG ---
DATE OF SERVICE: 09/07/2019 SUBJECTIVE: The patient is postoperative day 1, status post laparoscopic cholecystectomy. The patient reportedly had some significant epigastric pain this morning that she underwent evaluation and was noted to have a normal EKG. Her troponins were less than 0.010 x3. She did have a slightly elevated BNP. Her CT scan of her abdomen and pelvis showed a scant amount of pneumoperitoneum and free fluid that was not in excess of what would be expected postoperatively from a laparoscopic procedure. The patient remains afebrile. Her pain has improved over the day. She is tolerating clears. There is no bowel movement reported yet. OBJECTIVE: VITAL SIGNS: Appear stable, albeit the patient's systolic primarily is in the 90s to low 100s. This appears to be consistent throughout her visit. She remains afebrile. GENERAL: The patient appears to be resting comfortable. She is asleep at the time of my visit. I did not wake her to examine her. ASSESSMENT/PLAN: 1. Status post laparoscopic cholecystectomy. 2. Acute postoperative pain. Plan will be to follow her labs and vitals and increase her diet as tolerated. The patient will be encouraged to ambulate and we will await her bowel function to return. Job ID: [id number]
[2019-09-07] MEDS: Piperacillin/Tazobactam 3.375 GM in Sodium Chloride 0.9% 100 ML IVPB SCH ×4 (03:45→20:41)
[2019-09-07 05:33] LABS: Anion Gap 11 mmol/L (10-20); BUN (Urea Nitrogen) 8 mg/dL (9.8-20.1); Band 30 % (5-11); Calc. Creatinine Clearance 60 mL/min (70-130); Carbon Dioxide 23 mmol/L (23-31); Chloride 111 mmol/L (98-107); Estimated GFR-MDRD 70; Glucose 114 mg/dL (80-115); Hemoglobin 12.9 g/dL (12.0-16.0); Lymphocytes 15 % (21-51); MDiff Complete? YES; Magnesium 1.7 mg/dL (1.6-2.6); Mean Corpuscular HGB CONC 32.6 g/dL (32.0-36.0); Mean Corpuscular Hemoglobin 30.1 pg (27.0-31.0); Mean Corpuscular Volume 92.5 fL (78.0-98.0); Mean Platelet Volume 8.2 fL (7.4-10.4); Monocytes 5 % (0-10); Neutrophil 50 % (42-75); Phosphorus 3.5 mg/dL (2.3-4.7); Platelet Count 266 thou/uL (130-400); Platelet Morphology Comment Appears Adequate; Potassium 3.9 mmol/L (3.5-5.1); RBC Distribution Width 12.3 % (11.5-14.5); Red Blood Cell (RBC) Count 4.27 mill/uL (4.20-5.40); Sodium 141 mmol/L (136-145)
[2019-09-07 08:09] LABS: Hemoglobin 13.4 g/dL (12.0-16.0); Mean Corpuscular HGB CONC 32.8 g/dL (32.0-36.0); Mean Corpuscular Hemoglobin 30.5 pg (27.0-31.0); Mean Corpuscular Volume 93.1 fL (78.0-98.0); Mean Platelet Volume 7.9 fL (7.4-10.4); Platelet Count 264 thou/uL (130-400); RBC Distribution Width 12.1 % (11.5-14.5); Red Blood Cell (RBC) Count 4.38 mill/uL (4.20-5.40); White Blood Cell (WBC) Count 12.8 thou/uL (4.8-10.8)
[2019-09-07 08:31] LABS: ALT (SGPT) 49 U/L (8-55); AST (SGOT) 28 U/L (5-34); Albumin 3.2 g/dL (3.4-4.8); Alkaline Phosphatase 62 U/L (40-110); Anion Gap 14 mmol/L (10-20); BUN (Urea Nitrogen) 8 mg/dL (9.8-20.1); Bilirubin, Direct 0.7 mg/dL (0.1-0.3); Bilirubin, Total 1.1 mg/dL (0.2-1.2); Calc. Creatinine Clearance 62 mL/min (70-130); Calcium 8.1 mg/dL (7.8-10.44); Carbon Dioxide 21 mmol/L (23-31); Chloride 109 mmol/L (98-107); Estimated GFR-MDRD 72; Glucose 120 mg/dL (80-115); Potassium 3.5 mmol/L (3.5-5.1); Protein, Total 5.6 g/dL (6.0-8.3); Sodium 140 mmol/L (136-145)
[2019-09-07 08:39] LABS: Band 24 % (5-11); Lymphocytes 9 % (21-51); MDiff Complete? YES; Monocytes 1 % (0-10); Myelocyte 1 % (0-0); Neutrophil 64 % (42-75); RBC Morphology Normal; Reactive Lymphocytes 1 % (0-10)
[2019-09-07] MEDS: Pantoprazole 40 MG VIAL IVP SCH ×2 (09:42→20:41)
[2019-09-07] MEDS: Polyethylene Glycol 3350 17 GM Packet PO SCH (09:42)
[2019-09-07] MEDS: Senokot S 8.6-50 MG TAB PO SCH ×2 (09:42→20:40)
--- NOTE | 2019-09-07 13:55 | PRG ---
DATE OF SERVICE: 09/07/2019 SUBJECTIVE: The patient is seen and examined at the bedside. She is improving since yesterday. She did her walking. Amount of abdominal discomfort has significantly decreased, but she is still not passing any gas. She tried some laxatives and it did not really make her go. OBJECTIVE: VITAL SIGNS: Blood pressure is 111/57, pulse is 96, respiratory rate is 18, O2 saturation is 94% on room air. HEENT: Head is atraumatic and normocephalic. Eyes are PERRLA. Sclerae are not icteric. Oral mucosa is moist. NECK: Supple. LUNGS: Clear. HEART: S1, S2 normal. No S3. No S4. ABDOMEN: Slightly distended and bowel sounds are very sluggish. EXTREMITIES: No clubbing, cyanosis, or edema. NEUROLOGIC: She is alert and oriented x4. There is no any motor or sensory deficits. LABORATORY DATA: Labs showed white count of 12.8, hemoglobin of 13.4, hematocrit 40.8, platelet count is 264,000. Sodium of 140, potassium 3.5, chloride 105, CO2 of 21, BUN 8, creatinine 0.79. Liver function tests within normal limits. IMPRESSION: 1. Recurrent abdominal pain, felt to be related to acute on chronic cholecystitis, status post laparoscopic cholecystectomy for cholelithiasis along with cholecystitis. 2. History of osteoporosis. DISCUSSION: HIDA scan was canceled by Dr. Goldberg. She seems to be improving. It sounds like she needs more time and her bowel function should come back in the next probably 24 hours. As soon as we see that function to come back, she should be able to go home. For now, we will observe for additional 24 hours. Job ID: [id number]
[2019-09-07] MEDS ORDERED: Ibuprofen 200 MG TAB PO PRN (16:37)
[2019-09-07] MEDS: Acetaminophen 325 MG TAB PO SCH ×2 (17:57→23:40)
[2019-09-07] MEDS: traMADol HCl 50 MG TAB PO PRN (23:43)
[2019-09-08] MEDS ORDERED: Ketorolac Tromethamine 30 MG/ML VIAL IVP SCH (02:00)
[2019-09-08] MEDS: Piperacillin/Tazobactam 3.375 GM in Sodium Chloride 0.9% 100 ML IVPB SCH ×4 (02:10→19:51)
[2019-09-08] MEDS: traMADol HCl 50 MG TAB PO PRN ×2 (06:06→19:49)
[2019-09-08] MEDS: Acetaminophen 325 MG TAB PO SCH ×4 (06:07→23:22)
[2019-09-08 07:56] LABS: Hemoglobin 13.2 g/dL (12.0-16.0); Mean Corpuscular HGB CONC 32.7 g/dL (32.0-36.0); Mean Corpuscular Volume 91.8 fL (78.0-98.0); Platelet Count 285 thou/uL (130-400); RBC Distribution Width 12.2 % (11.5-14.5); Red Blood Cell (RBC) Count 4.39 mill/uL (4.20-5.40); White Blood Cell (WBC) Count 16.2 thou/uL (4.8-10.8)
[2019-09-08 08:12] LABS: Anion Gap 12 mmol/L (10-20); BUN (Urea Nitrogen) 9 mg/dL (9.8-20.1); Calc. Creatinine Clearance 68 mL/min (70-130); Calcium 8.4 mg/dL (7.8-10.44); Carbon Dioxide 21 mmol/L (23-31); Chloride 107 mmol/L (98-107); Estimated GFR-MDRD 80; Glucose 89 mg/dL (80-115); Magnesium 1.9 mg/dL (1.6-2.6); Potassium 3.1 mmol/L (3.5-5.1); Sodium 137 mmol/L (136-145)
[2019-09-08 08:28] LABS: MDiff Complete? YES; RBC Morphology Normal
[2019-09-08 08:32] LABS: Band 27 % (5-11); Lymphocytes 8 % (21-51); Neutrophil 60 % (42-75)
[2019-09-08 08:33] LABS: Metamyelocyte 1 % (0-0); Monocytes 4 % (0-10)
[2019-09-08] MEDS ORDERED: Potassium Phosphate 30 MMOL in Sodium Chloride 0.9% 250 ML 250 ML IVPB SCH (08:45)
[2019-09-08] MEDS: Pantoprazole 40 MG VIAL IVP SCH ×2 (08:47→19:52)
[2019-09-08] MEDS: Senokot S 8.6-50 MG TAB PO SCH ×2 (08:47→19:50)
[2019-09-08] MEDS: Polyethylene Glycol 3350 17 GM Packet PO SCH (08:47)
[2019-09-08] MEDS ORDERED: Fluconazole In NaCl,Iso-Osm 400 MG in Premix Bag 1 BAG IVPB SCH (09:00)
[2019-09-08] MEDS: Lactated Ringer's 1,000 ML IV SCH ×2 (10:36→19:54)
[2019-09-08] MEDS ORDERED: Succinylcholine Chloride 20 MG/ML 10 ml SYRINGE FS ONE (12:15)
[2019-09-08] MEDS ORDERED: Rocuronium Bromide 10 MG/ML (10ML VIAL) ONE (12:15)
[2019-09-08] MEDS ORDERED: PROPOFOL 200 MG/20 ML VIAL ONE (12:15)
[2019-09-08] MEDS ORDERED: Lidocaine 1% PF 5 ML VIAL ONE (12:15)
--- NOTE | 2019-09-08 14:24 | PRG ---
DATE OF SERVICE: 09/08/2019 SUBJECTIVE: The patient is seen and examined at the bedside. During my visit, is present in the room. She complains both abdominal distention, and she got bowel movement this morning and started passing some gas, but she feels quite miserable with amount of bloating she has in her abdomen. OBJECTIVE: VITAL SIGNS: Blood pressure is 124/58, pulse is 99, temperature is 97.8, respirations are 24, and O2 saturation is 95% on room air. She is afebrile. HEENT: Her head is atraumatic and normocephalic. Eyes are PERRLA. Sclerae are nonicteric. Oral mucosa is slightly dry. NECK: Supple. LUNGS: Clear. HEART: S1 and S2 normal. ABDOMEN: Distended. Bowel sounds are present. There is a tympanic sound on percussion all over her abdomen. No guarding, but she is quite sensitive all over her abdomen to palpation. EXTREMITIES: No clubbing, cyanosis, or edema. NEUROLOGIC: She follows my commands. She moves her all 4 extremities. There is no any motor or sensory deficit. LABORATORY DATA: White count is up to 16.2, hemoglobin is 13.2, hematocrit is 40.3, platelet count is 285,000, bands are 27. Chemistry; sodium 137, potassium 3.1, chloride 107, CO2 of 21, BUN 9, creatinine 0.72, phosphorus 2.0. Gallbladder pathology specimen showed acute and chronic cholecystitis and cholelithiasis. IMPRESSION: 1. Recurrent abdominal pain, found to be caused by a chronic and acute cholecystitis and cholelithiasis status post laparoscopic cholecystectomy now with some complication with retained gas in her GI tract. The patient has a long history of constipation and most likely this is the factor which is causing her to respond that way. 2. History of osteoporosis. 3. Hypokalemia, for replacement. Continue IV fluids. Job ID: [id number]
--- NOTE | 2019-09-08 18:29 | EKG ---
Test Reason : Blood Pressure : / mmHG Vent. Rate : 081 BPM Atrial Rate : 081 BPM P-R Int : 126 ms QRS Dur : 066 ms QT Int : 386 ms P-R-T Axes : 073 004 001 degrees QTc Int : 448 ms Normal sinus rhythm Low voltage QRS Nonspecific T wave abnormality Abnormal ECG When compared with ECG of 04-SEP-2019 03:41, (Unconfirmed) Inverted T waves have replaced nonspecific T wave abnormality in Inferior leads Nonspecific T wave abnormality now evident in Anterolateral leads QT has lengthened Confirmed by CLAYTON PRINCE, . SShira (4) on 09/08/2019 6:29:20 PM Referred By: LAZARA Confirmed By:DR. Ophelia ARNOLD MD
--- NOTE | 2019-09-08 18:38 | PRG ---
DATE OF SERVICE: 09/08/2019 SUBJECTIVE: The patient is currently on the obs floor. She is status post laparoscopic cholecystectomy that developed postop ileus and there was concern for possible bowel injury due to adhesions to the gallbladder during surgery. The patient had some more pain last night, but after a bowel movement, she felt much better this morning. She is feeling well. She is tolerating liquids and denied any nausea or vomiting, but has had some more bloating and abdominal distention. The patient has been afebrile. OBJECTIVE: VITAL SIGNS: Temperature is 97.3, heart rate 89, blood pressure 118/56, respirations 24, and oxygen saturation is 95% on room air. GENERAL: The patient is resting comfortably in bed. She is awake, alert, conversant. HEENT: Unremarkable. LUNGS: Clear to auscultation bilaterally. HEART: Regular rate and rhythm. ABDOMEN: Moderately distended. She has no peritoneal signs. Bowel sounds are active. EXTREMITIES: Neurovascularly intact x4. LABORATORY FINDINGS: White blood cell count 16.2, hemoglobin 13.2, hematocrit 40.3, platelets 285. Sodium 137, potassium 3.1, chloride 107, CO2 of 21, BUN 9, creatinine 0.72, glucose 89, magnesium 1.9, and phosphorus 2.0. There are no radiographs reviewed this morning. ASSESSMENT AND PLAN: 1. Status post laparoscopic cholecystectomy. 2. Acute postoperative pain. 3. Postop ileus. 4. Leukocytosis. 5. Hypokalemia, acute. 6. Acute hypophosphatemia. Plan will be to make the patient n.p.o., replace her electrolytes. Repeat labs in the morning and also we will do a CT of her abdomen and pelvis with IV and p.o. contrast to evaluate for possible bowel injury in light of her leukocytosis. The evaluation and examination were done with Dr. Goldberg during rounds this morning. Job ID: [id number]
[2019-09-08] MEDS ORDERED: Morphine 4 MG/ML VIAL SLOW IVP PRN ×2 (20:10→21:16)
[2019-09-08 22:21] LABS: INR-International Normal Ratio 1.2
[2019-09-08 22:33] LABS: Lactic Acid 0.7 mmol/L (0.5-2.2)
[2019-09-08] MEDS ORDERED: Fentanyl 250 MCG/5 ML VIAL ONE (22:52)
[2019-09-08] MEDS ORDERED: Midazolam HCl 2 mg/2 ml Vial ONE (22:52)
[2019-09-09] MEDS ORDERED: Midazolam HCl 2 mg/2 ml Vial SLOW IVP PRN (01:53)
[2019-09-09] MEDS ORDERED: DISCONTINUE PREVIOUS NARCOTIC PAIN MEDICATIONS AND BENZODIAZEPINES FS SCH (01:56)
[2019-09-09] MEDS ORDERED: Lorazepam 2 MG/ML VIAL SLOW IVP PRN (01:56)
[2019-09-09] MEDS ORDERED: Propofol BOLUS 1,000 MG/100 ML VIAL IV PRN (01:56)
[2019-09-09] MEDS ORDERED: Morphine 2 MG/ML SYRINGE SLOW IVP PRN (01:56)
[2019-09-09] MEDS ORDERED: fentaNYL Citrate/PF 2,000 MCG in Sodium Chloride 0.9% 60 ML IV SCH (01:56)
[2019-09-09] MEDS ORDERED: Propofol 1,000 MG/100 ML VIAL IV PRN (01:56)
[2019-09-09] MEDS ORDERED: Fentanyl BOLUS 250 ML IVPB PRN (01:56)
[2019-09-09] MEDS ORDERED: Ventilator Sedation Protocol 1 EACH FS SCH (02:00)
[2019-09-09] MEDS ORDERED: Sodium Chloride 0.45% 1,000 ML IV SCH (02:00)
[2019-09-09] MEDS: Sodium Chloride 0.9% 1,000 ML IV SCH ×2 (02:34→11:34)
[2019-09-09 02:48] LABS: Base Excess (BEa) -8.4 mEq/L (-2.0 to +3.0); CO2 Tension 34.9 mmHg (35.0-45.0); Calcium, Ionized 1.14 mmol/L (1.12-1.30); Carboxyhemoglobin (COHb) 1.1 gm% (0.0-3.0); Hemoglobin (Hb) 13.9 g/dL (12.0-16.0); Potassium - ABG Lab 3.05 mmol/L (3.70-5.30); pH, Arterial 7.31 (7.35-7.45)
[2019-09-09] MEDS: Piperacillin/Tazobactam 3.375 GM in Sodium Chloride 0.9% 100 ML IVPB SCH ×4 (02:48→20:03)
[2019-09-09 02:53] LABS: ALV-art Gradient 618.375 (0-20); Puncture Site RRA
--- NOTE | 2019-09-09 02:59 | PRG ---
DATE OF SERVICE: 09/09/2019 SUBJECTIVE: The patient was seen originally earlier this evening after nursing reported significant increase in abdominal pain. On my evaluation, the patient was peritonitic, reported that when she got up to go use the bathroom, she had a sudden increase in her abdominal pain. The patient was given 4 mg of IV morphine, but the pain was still at a 9/10 or 10/10. Upon my evaluation, there was concern for intraabdominal processes. Dr. Goldberg was contacted who came to the bedside and took the patient to the OR for an exploratory laparotomy. The patient received an exploratory laparotomy, adhesiolysis, small-bowel resection x2 with primary anastomosis, NJ feeding tube placement. The patient also has a right-sided abdominal GENARO drain. Postoperatively, the patient was transferred to the CCU, intubated and sedated. She was hemodynamically stable throughout her OR stay and arrived to the CCU with systolic blood pressure in the 120s and normal sinus rhythm. OBJECTIVE: GENERAL: Well-appearing elderly female, lying in bed, intubated and sedated with no signs of acute distress. PULMONARY: Equal chest rise and fall. Clear breath sounds bilaterally. No signs of acute respiratory distress. CARDIAC: Regular rate and rhythm. No murmurs, gallops, or rubs. GI: Abdomen is soft, nontender, nondistended. Midline abdominal dressing is in place and clean and dry. NEURO: GCS is 3T. ASSESSMENT: 1. Status post postoperative day #3 status post laparoscopic cholecystectomy with postoperative ileus. 2. Postoperative day #0 status post exploratory laparotomy, small-bowel resection and adhesiolysis. 3. Developing abdominal wall abscess, which was drained and packed in the OR. PLAN: The patient will remain intubated and sedated overnight in the CCU. Plan for extubation later on this morning. She will be sedated with a fentanyl drip and p.r.n. midazolam, n.p.o., NG tube to low intermittent wall suction, Dobhoff was confirmed in the right location via an x-ray and we will remove the wire and start the patient trickle tube feeds at 10 an hour, will not advance. She will have normal saline at 100 an hour. The patient also to receive scheduled Zosyn and IV fluconazole. The patient to have Pepcid for gastric ulcer prophylaxis and Lovenox for deep venous thrombosis prophylaxis as well as SCDs. Overnight, we will closely monitor her urinary output with goal output at greater than or equal to 30 mL/h based on her weight. We will repeat blood work in the morning. This patient was seen and examined by Dr. Goldberg and myself this evening. Job ID: [id number]
--- NOTE | 2019-09-09 04:31 | OP ---
DATE OF PROCEDURE: 09/08/2019 PREOPERATIVE DIAGNOSES: 1. Status post laparoscopic cholecystectomy postoperative day #3. 2. Acute peritonitis. POSTOPERATIVE DIAGNOSES: 1. Status post laparoscopic cholecystectomy postoperative day #3. 2. Acute peritonitis. 3. Perforated small bowel with bile peritonitis. 4. Extensive intraabdominal adhesions. PROCEDURES PERFORMED: 1. Exploratory laparotomy. 2. Extensive adhesiolysis. 3. Segmental small bowel resection x2 with primary anastomosis. 4. Placement of feeding nasojejunal tube. 5. Abdominal washout and closure. SELLING SPECIALIST: Mona Coronado PA-C ANESTHESIA: General endotracheal. ESTIMATED BLOOD LOSS: 100 mL. FLUIDS GIVEN: 1400 mL crystalloids. URINARY OUTPUT: 900 mL. COUNTS: Sponge and instrument counts were verified as correct x2. COMPLICATIONS: None apparent at the time of operation. INDICATIONS FOR OPERATION: A 69-year-old woman underwent laparoscopic cholecystectomy 3 days previously. She has been under observation due to high index of suspicion of a possible bowel injury. During the last operation, she was also noted to have extensive small-bowel adhesions involving the anterior abdominal wall. Today, the patient developed worsening abdominal pain associated with abdominal bloating and tachycardia. She was therefore brought to the operating room for exploration. FINDINGS: Consistent with small bowel perforation with free succus entericus. Extensive intraabdominal adhesions were also noted involving multiple loops of small bowel. DESCRIPTION OF PROCEDURE: Informed consent was obtained. The patient was brought to the operating room and placed in supine position. Following general anesthesia, abdomen was sterilely prepped and draped in usual fashion. A midline incision was made using 10 scalpel. Incision was carried through subcutaneous tissues maintaining hemostasis using cautery. I entered the peritoneal cavity from the subxiphoid midline aspect of the incision. The adhering small bowel to the anterior abdominal wall was meticulously taken down serially using Metzenbaum scissors. The fascia was then opened along the line of the remainder of the incision. Meticulous dissection ensued taking down small bowel adhesions as they were encountered. Small bowel was then run from the ligament of Treitz down to the terminal ileum. I did encounter 1 perforation in the mid jejunum with a fair amount of succus entericus within the abdominal cavity, which was evacuated using suction. Also noted is segment of small bowel. This was densely adhered to the pelvis. Therefore, decided to resect the small bowel segment involved here as well as the area of the bowel perforation. To achieve this resection, I turned my attention to the jejunal perforation. I created a rent in the mesentery of the small bowel proximal and distal to the perforation using hemostats. YOBANI stapler was introduced. Bowel was divided in these 2 areas. The mesentery of the specimen was divided using LigaSure and the bowel was passed off the operative field. The bowel was then approximated in a xcsh-ct-[id number] fashion antimesenteric border using interrupted sutures of 3-0 silk. Enterotomies were made at both apices, through which free ends of YOBANI stapler was introduced and functional end-to-end, but anatomic zesi-el-[id number] anastomosis was accomplished. Common enterotomy was closed using YOBANI stapler. Resultant mesenteric defect was closed using interrupted sutures of 3-0 silk. I turned my attention to the distal jejunal deserosalized segment from the dense adhesions. I created a rent proximal and distal to this for a 6-inch piece of bowel through the defect created in the mesentery. YOBANI stapler was again introduced and bowel was divided. The mesentery of the specimen was also divided serially using LigaSure device with good hemostasis. That specimen was passed off the field as well. The staple end of the bowel was approximated in a [id number]-hf-[id number] fashion again using 3-0 silk suture in interrupted fashion. Enterotomies were made at both apices again through which a YOBANI stapler was introduced, achieving a functional end-to-end, but anatomic [id number]-hx-[id number] enteroenterostomy. Mesenteric defect here was closed using interrupted sutures of 3-0 silk. The abdominal cavity was copiously irrigated clear with saline solution. I did re-run the bowel again from the ligament of Treitz down to terminal ileum. I did not find any other pathology. Large intestine inspected from the cecum through the ascending, transverse, descending, sigmoid colon and rectum, no pathology noted. The transverse colon was quite redundant. The nasogastric tube was palpated within the gastric lumen. At this juncture, a feeding nasojejunal tube was introduced by Anesthesia, the tip of which was palpated by myself within the gastric lumen. I manipulated tip of this catheter into proximal small bowel without resistance. Normal appendix was noted in the usual anatomic location. Finding no other pathology, exploration was terminated at this juncture. All sponges and instruments were reported as correct. I placed a #19 Varun drain in the deep pelvis, allowing this to exit the abdominal cavity through a separate stab incision securing the drain to anterior abdominal wall using 2-0 silk suture. I placed a sheet of Seprafilm in the deep pelvis and returned the small bowel to normal anatomic location. A second piece of Seprafilm was placed over the small bowel and omentum was drawn over remainder of the viscera. Fascia was approximated in midline using a running stitch of #1 single stranded PDS. Subcutaneous tissues were pulse lavaged with 3 L of sterile saline. Skin incision was closed using dewey. Sterile dressings were applied. The patient tolerated the operation without any apparent complication and was returned to the intensive care unit in critical, but stable condition. Job ID: [id number]
[2019-09-09 05:51] LABS: Band 11 % (5-11); Hemoglobin 12.8 g/dL (12.0-16.0); Lymphocytes 13 % (21-51); MDiff Complete? YES; Mean Corpuscular HGB CONC 31.7 g/dL (32.0-36.0); Mean Corpuscular Hemoglobin 29.4 pg (27.0-31.0); Mean Corpuscular Volume 92.7 fL (78.0-98.0); Mean Platelet Volume 8.1 fL (7.4-10.4); Monocytes 6 % (0-10); Neutrophil 70 % (42-75); Platelet Count 317 thou/uL (130-400); Platelet Morphology Comment Appears Adequate; RBC Distribution Width 12.2 % (11.5-14.5); Red Blood Cell (RBC) Count 4.37 mill/uL (4.20-5.40); White Blood Cell (WBC) Count 10.3 thou/uL (4.8-10.8)
[2019-09-09 05:59] LABS: Lactic Acid 2.1 mmol/L (0.5-2.2)
[2019-09-09 06:01] LABS: Phosphorus 2.9 mg/dL (2.3-4.7)
[2019-09-09 06:19] LABS: AST (SGOT) 25 U/L (5-34); Albumin 2.2 g/dL (3.4-4.8); BUN (Urea Nitrogen) 6 mg/dL (9.8-20.1); Bilirubin, Total 0.9 mg/dL (0.2-1.2); Calc. Creatinine Clearance 79 mL/min (70-130); Calcium 7.5 mg/dL (7.8-10.44); Chloride 112 mmol/L (98-107); Estimated GFR-MDRD Greater than 90; Globulin 2.8 g/dL (2.4-3.5); Potassium 3.7 mmol/L (3.5-5.1); Sodium 137 mmol/L (136-145)
[2019-09-09 06:22] LABS: Carbon Dioxide 9 mmol/L (23-31); Glucose 52 mg/dL (80-115)
[2019-09-09 06:24] LABS: Anion Gap 20 mmol/L (10-20)
[2019-09-09 06:31] LABS: Alkaline Phosphatase 78 U/L (40-110)
[2019-09-09] MEDS: Acetaminophen 1,000 MG in Premix Bag 1 BAG IVPB SCH ×4 (06:33→23:10)
[2019-09-09 06:34] LABS: ALT (SGPT) 24 U/L (8-55); Magnesium 1.8 mg/dL (1.6-2.6)
[2019-09-09] MEDS ORDERED: Sodium Bicarb 50 MEQ/50 ML VIAL ONE (06:40)
[2019-09-09] MEDS ORDERED: Dextrose 50% Abboject 50 ML SYRINGE ONE (06:41)
[2019-09-09 07:00] LABS: Actual Bicarbonate (HCO3a) 15.4 mEq/L (22-28); Base Excess (BEa) -7.5 mEq/L (-2.0 to +3.0); Carboxyhemoglobin (COHb) 0.4 gm% (0.0-3.0); Hemoglobin (Hb) 12.3 g/dL (12.0-16.0); O2 Tension (PaO2) 451.4 mmHg (> 70.0); Potassium - ABG Lab 2.99 mmol/L (3.70-5.30); pH, Arterial 7.41 (7.35-7.45)
[2019-09-09] MEDS ORDERED: Potassium Phosphate 15 MMOL, Magnesium Sulfate 2 GM in Sodium Chloride 0.9% 250 ML 250 ML IVPB SCH (07:00)
[2019-09-09] MEDS ORDERED: Magnesium 2 GM/50 ML 2 GM in Premix Bag 1 BAG IVPB SCH (07:00)
[2019-09-09 07:01] LABS: CO2 Tension 24.8 mmHg (35.0-45.0)
[2019-09-09 07:02] LABS: Puncture Site RRA
--- NOTE | 2019-09-09 07:55 | RAD ---
PORTABLE CHEST 1 VIEW: DATE: 09/09/2019. TIME: 1:49 a.m. HISTORY: Respiratory failure. FINDINGS: Comparison is made with the exam of 09/06/2019. There has been interval placement of an endotracheal tube with tip just below the level of the clavic ular heads. There is a nasogastric tube with tip in the stomach. There is a feeding tube with tip i n the projection of the jejunum. The heart size is normal. No lobar consolidation, pneumothoraces, or pleural effusions are seen. There is mild prominence of the pulmonary vascularity. POS: H
[2019-09-09] MEDS ORDERED: Sodium Bicarb 50 MEQ/50 ML Abboject 8.4% SYRINGE IVP SCH (08:00)
[2019-09-09] MEDS ORDERED: Dextrose 50% Abboject 50 ML SYRINGE SLOW IVP SCH (08:00)
[2019-09-09] MEDS ORDERED: Calcium Chloride 13.6 MEQ in Sodium Chloride 0.9% 100 ML IVPB SCH (08:15)
[2019-09-09] MEDS: Enoxaparin Sodium 40 MG/0.4 ML SYRINGE SC SCH (08:46)
[2019-09-09] MEDS: Famotidine/PF 20 mg/2ml Vial SLOW IVP SCH ×2 (08:47→20:04)
[2019-09-09] MEDS ORDERED: diphenhydrAMINE 50 MG/ML VIAL IM PRN (08:53)
[2019-09-09] MEDS ORDERED: diphenhydrAMINE 25 MG CAP PO PRN (08:53)
[2019-09-09] MEDS ORDERED: Naloxone HCl 0.4 mg/ml Vial IV PRN (08:53)
[2019-09-09] MEDS ORDERED: Promethazine HCl 25 MG/ML VIAL IM PRN (08:53)
[2019-09-09] MEDS ORDERED: Communication Order-Pharmacy FS SCH (09:00)
[2019-09-09] MEDS: Fluconazole In NaCl,Iso-Osm 200 MG in Premix Bag 1 BAG IVPB SCH (09:04)
[2019-09-09] MEDS: HYDROmorphone 10 mg/100 ml CADD IVPB PRN (09:30)
[2019-09-09] MEDS: Ketorolac Tromethamine 30 MG/ML VIAL IVP SCH ×3 (11:31→23:11)
--- NOTE | 2019-09-09 12:18 | PRG ---
DATE OF SERVICE: 09/09/2019 SUBJECTIVE: The patient is seen and examined at the bedside. She had increased abdominal pain last night, and she was taken to the operating room by Dr. Goldberg, who found perforated bowel and peritonitis. The patient is currently in the intensive care unit, resting. OBJECTIVE: VITAL SIGNS: Blood pressure is 134/64, pulse is 98, respiratory rate is 17, O2 is 99%. HEENT: Her sclerae are nonicteric. Conjunctivae are pinkish. Oral mucosa is moist. LUNGS: Few crackles at both bases, bilaterally similar. HEART: S1 and S2 are normal. No S3. No S4. ABDOMEN: Somewhat tender to palpation. She has a dressing in the midline. Bowel sounds absent. EXTREMITIES: No clubbing, cyanosis, or edema. NEUROLOGIC: She follows my commands. She moves her all 4 extremities. There are no any motor deficits. LABORATORY DATA: White count of 10.3, hemoglobin 12.8, hematocrit 40.5, platelet count is 317,000. ABG; pH of 7.41, pCO2 of 24.8, pO2 of 451.4. Sodium of 137, potassium 3.7, chloride 112, CO2 of 9, BUN 6, creatinine 0.62, glucose 52, calcium 7.5, total protein 5.0, albumin 2.2. IMPRESSION: 1. Bile peritonitis from perforated small bowel, status post laparotomy. 2. Status post laparoscopic cholecystectomy. 3. 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 4. History of osteoporosis. PLAN: Continue her antibiotic, which is Zosyn. Continue IV fluids. Continue potassium and phosphorus replacement and postoperative management mainly by general surgeon. Job ID: [id number]
--- NOTE | 2019-09-09 16:59 | PRG ---
DATE OF SERVICE: 09/09/2019 SUBJECTIVE: Ms. Joyner is a 69-year-old woman underwent exploratory laparotomy yesterday with segmental small bowel resection x2, primary anastomosis. She also had an extensive adhesiolysis. She was left on mechanical ventilator support overnight. This morning, she is awake and alert. She reports adequate pain control. She was tolerating ventilatory wean. Urinary output adequate for the patient's age and weight. OBJECTIVE: VITAL SIGNS: This morning include blood pressure 115/59, pulse 113, respiratory rate 16, maximum temperature in last 24 hours 98.7 degrees Fahrenheit, and oxygen saturation 100% on FiO2 of 30%. HEENT: Pupils equal, round, reactive to light and accommodation. She has bilateral scleral edema. NECK: She has no jugular venous distention noted. HEART: Reveals regular rate with sinus tachycardia. No murmurs or gallops auscultated. LUNGS: Clear to auscultation bilaterally. Breathing, regular and nonlabored. ABDOMEN: Soft and nondistended. Bowel sounds hypoactive in all 4 quadrants. Cooper-Kang drain returns moderate amount of serosanguineous fluid. NEUROLOGIC: Reveals no focal deficits present. LABORATORY FINDINGS: Today include a CBC with 10,300 white blood cells, hemoglobin and hematocrit of 12.8 and 40.5 respectively. Platelet count is 317,000. Metabolic profile; sodium 137, potassium 3.7, chloride is 112, bicarb is 9, BUN 6, creatinine 0.62, glucose 52. Phosphorus is 2.9. Magnesium 1.8. AST and ALT normal at 25 and 24 respectively. Lactic acid is 2.1. IMPRESSION: 1. Postop day #1 status post exploratory laparotomy. 2. Acute postoperative respiratory failure, resolving. 3. Acute hypokalemia. 4. Acute hypoglycemia. 5. Acute hypophosphatemia. 6. Acute hypomagnesemia. 7. Acute metabolic acidosis. 8. Continue with fluid resuscitation. Monitor urinary output as endpoint of our resuscitation as we anticipated resolution of the lactic acidosis. 9. Correct abnormal electrolytes. 10. The patient is weaned and successfully extubated. We will increase activity per Physical and Occupational Therapy. 11. Continue with trophic enteral nutritional supplementation. The patient was given one amp of D50 to correct current hypoglycemia. Total critical care time is 45 minutes. Job ID: [id number]
[2019-09-10] MEDS: Piperacillin/Tazobactam 3.375 GM in Sodium Chloride 0.9% 100 ML IVPB SCH ×4 (01:07→20:08)
--- NOTE | 2019-09-10 01:11 | PRG ---
DATE OF SERVICE: 09/09/2019 SUBJECTIVE: The patient was seen this evening, sitting up in bed with no signs of acute distress. She reported she is feeling much better today than yesterday. NG tube was in place, but not working appropriately. It was flushed and working before I left the patient's room. She is still n.p.o. and is receiving trickle feeds from her NJ tube. NG tube was putting out bilious output. OBJECTIVE: VITAL SIGNS: Temperature 97.7, pulse 91, respirations 16, oxygen saturation 96% on room air, and blood pressure 125/76. GENERAL: Well-appearing elderly female, sitting up in bed with no signs of acute distress. PULMONARY: Equal chest rise and fall. Clear breath sounds bilaterally. No signs of acute respiratory distress. CARDIAC: Regular rate and rhythm. No murmurs, gallops, or rubs. GI: Abdomen is soft, appropriately tender to palpation and nondistended. Midline abdominal wound is clean, dry, and intact. NEURO: GCS is 15. ASSESSMENT: 1. Postoperative day #1, status post exploratory laparotomy, small-bowel resection x2, and adhesiolysis. 2. Postoperative day #5 status post cholecystectomy. 3. Acute postoperative respiratory failure, resolved. PLAN: Continue current n.p.o. 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 Continue to monitor output from NG tube and ensure it is working appropriately. Continue to feeds at 10 an hour. Do not increased unless otherwise directed by Trauma Team. Continue working with Physical and Occupational Therapy. Continue current IV fluids and antibiotics. We will repeat chemistry panel and renal function and blood work tomorrow. The patient will likely be able to be discharged home when she is tolerating a regular diet and she has return of bowel function. Job ID: [id number]
[2019-09-10] MEDS: Sodium Chloride 0.9% 1,000 ML IV SCH ×3 (04:30→19:34)
[2019-09-10] MEDS: Ketorolac Tromethamine 30 MG/ML VIAL IVP SCH ×4 (05:09→23:18)
[2019-09-10 05:21] LABS: Anion Gap 10 mmol/L (10-20); BUN (Urea Nitrogen) 5 mg/dL (9.8-20.1); Calc. Creatinine Clearance 73 mL/min (70-130); Calcium 7.8 mg/dL (7.8-10.44); Carbon Dioxide 18 mmol/L (23-31); Chloride 114 mmol/L (98-107); Estimated GFR-MDRD 87; Glucose 88 mg/dL (80-115); Magnesium 2.1 mg/dL (1.6-2.6); Phosphorus 2.4 mg/dL (2.3-4.7); Potassium 3.3 mmol/L (3.5-5.1); Sodium 139 mmol/L (136-145)
[2019-09-10] MEDS ORDERED: Potassium Chloride 40 MEQ in Sodium Chloride 0.9% 250 ML 250 ML IVPB SCH (08:30)
[2019-09-10] MEDS ORDERED: traMADol HCl 50 MG TAB PO PRN ×2 (09:42→10:47)
[2019-09-10] MEDS: Fluconazole In NaCl,Iso-Osm 200 MG in Premix Bag 1 BAG IVPB SCH (09:50)
[2019-09-10] MEDS ORDERED: Acetaminophen 325 MG TAB PO SCH ×2 (10:00→12:45)
[2019-09-10] MEDS: Famotidine/PF 20 mg/2ml Vial SLOW IVP SCH (10:00)
--- NOTE | 2019-09-10 12:06 | PRG ---
DATE OF SERVICE: 09/10/2019 SUBJECTIVE: The patient is postop day #2, status post exploratory laparotomy with segmental small bowel resection x2 and a primary anastomosis. She also had extensive adhesiolysis. The patient was on the critical care unit yesterday. She had remained on the ventilator, but she was able to be extubated in the morning. Yesterday afternoon, she was able to be moved to the surgical floor. She had no issues overnight. She has a Dobhoff and an NG tube in place. She is tolerating her trophic feeds. Her NG tube output was approximately 400 mL. She denies nausea or vomiting and does not believe that she has passed gas yet. PHYSICAL EXAMINATION: VITAL SIGNS: Temperature is 97.7, heart rate 82, blood pressure 113/68, respirations 16, and oxygen saturation 94% on room air. GENERAL: The patient is resting comfortably in bed. She is awake, alert, and conversant. HEENT: Unremarkable. Her NG tube was flushed and appears to be functioning properly. LUNGS: Clear to auscultation with good inspiratory and expiratory effort. HEART: Regular rate and rhythm. ABDOMEN: Soft and nondistended with hypoactive bowel sounds. GENARO drain reportedly put out 230 mL in the previous 24 hours. EXTREMITIES: Neurovascularly intact x4. LABORATORY FINDINGS: Sodium 139, potassium 3.3, chloride 114, CO2 of 18, BUN 5, creatinine 0.67, glucose 88, magnesium 2.1, and phosphorus 2.4. DIAGNOSTIC DATA: There are no radiographs to review this morning. ASSESSMENT: 1. Postop day #2, status post exploratory laparotomy and above mentioned procedures. 2. Acute postoperative respiratory failure, resolved. 3. Acute hypokalemia. We will replace electrolytes today. PLAN: Plan will be to continue supportive care. We will increase her tube feeds to 20 mL an hour. Encourage out of bed. We will discontinue her Gaitan, have PT evaluate her and discuss possible placement. The patient was seen with Dr. Goldberg this morning. Job ID: [id number]
--- NOTE | 2019-09-10 12:16 | PDOC.HOSPP ---
- Subjective Encounter Date: 09/10/19 Encounter Time: 08:15 Subjective: Patient seen and examined. No new complaints. No overnight events pt has surgical site discomfort, not passing gas, no fever - Objective Vital Signs & Weight: Vital Signs (12 hours) Temp Pulse Resp BP Pulse Ox 09/10/19 11:56 97.4 F L 93 14 110/68 99 09/10/19 08:38 94 L 09/10/19 08:05 97.7 F 82 16 113/68 94 L 09/10/19 07:52 95 09/10/19 07:48 92 16 95 09/10/19 04:12 97.6 F 86 16 106/65 95 09/10/19 00:25 98.2 F 92 16 100/63 94 L Weight Admit Weight 130 lb 10.342 oz Weight 130 lb 6.4 oz Most Recent Monitor Data Heart Rate from ECG 93 NIBP 118/87 NIBP BP-Mean 97 Respiration from ECG 16 SpO2 98 I&O: 09/09/19 09/10/19 09/11/19 06:59 06:59 06:59 Intake Total 733 3465 Output Total 580 2215 Balance 153 1250 Result Diagrams: 09/09/19 05:28 09/10/19 04:25 Additional Labs: Accuchecks 09/10/19 09/10/19 09/09/19 04:19 00:32 21:08 POC Glucose 85 84 79 09/09/19 12:11 POC Glucose 73 Hospitalist ROS - Review of Systems Constitutional: reports: weakness. denies: fever, chills, sweats, malaise, other ENT: denies: ear pain, ear discharge, nose pain, nose discharge, nose congestion , mouth pain, mouth swelling, throat pain, throat swelling, other Respiratory: reports: cough. denies: dry, shortness of breath, hemoptysis, SOB with excertion, pleuritic pain, sputum, wheezing, other Cardiovascular: denies: chest pain, palpitations, orthopnea, paroxysmal noc. dyspnea, edema, light headedness, other Gastrointestinal: reports: abdominal pain. denies: nausea, vomiting, diarrhea, constipation, melena, hematochezia, other Genitourinary: denies: dysuria, frequency, incontinence, hematuria, retention, other Musculoskeletal: denies: neck pain, shoulder pain, arm pain, back pain, hand pain, leg pain, foot pain, other Skin: denies: rash, lesions, nora, bruising, other - Medication Medications: Active Medications Generic Name Dose Route Start Last Admin Trade Name Freq PRN Reason Stop Dose Admin Albuterol/Ipratropium 3 ml 09/06/19 18:30 09/10/19 07:48 Duoneb NEB 3 ml TID-RT ELSA Administration Enoxaparin Sodium 40 mg 09/09/19 21:00 09/09/19 08:46 Lovenox SC 40 mg 2100 ELSA Administration Hydromorphone HCl 0 mg 09/09/19 08:53 09/09/19 09:30 Dilaudid Cadd IVPB 10 mg INF PRN Administration Pain Piperacillin Sod/Tazobactam 100 mls @ 200 mls/hr 09/06/19 14:00 09/10/19 08: 58 Sod 3.375 gm/ Sodium Chloride IVPB 100 mls 0200,0800,1400,2000 ELSA Administration Fluconazole/Sodium Chloride 100 mls @ 100 mls/hr 09/09/19 09:00 09/10/19 09: 50 200 mg/ Device IVPB 100 mls DAILY ELSA Administration Sodium Chloride 1,000 mls @ 100 mls/hr 09/09/19 02:00 09/10/19 09:57 Normal Saline 0.9% IV Not Given .Q10H ELSA Ketorolac Tromethamine 15 mg 09/09/19 12:00 09/10/19 05:09 Toradol IVP 09/11/19 12:01 15 mg Q6HR ELSA Administration Ondansetron HCl 4 mg 09/04/19 07:46 09/04/19 18:21 Zofran IVP 4 mg Q6H PRN Administration Nausea/Vomiting - Exam General Appearance: NAD, awake alert Eye: PERRL, anicteric sclera ENT: normocephalic atraumatic, no oropharyngeal lesions ENT - other findings: NG tube with LIS, NJ tube in place Neck: supple, symmetric, no JVD, no thyromegaly Heart: RRR, no murmur, no gallops, no rubs Respiratory: CTAB, no wheezes, no rales, no ronchi Gastrointestinal: soft Gastrointestinal - other findings: surgical site with dressing, GENARO drain in place, no bowel sound Extremities: no cyanosis, no clubbing, no edema Skin: normal turgor, no lesions Neurological: cranial nerve grossly intact, normal sensation to touch, no focal deficits Musculoskeletal: normal tone, normal strength, no muscle wasting Psychiatric: normal affect, normal behavior Hosp A/P (1) Chest pain Code(s): R07.9 - CHEST PAIN, UNSPECIFIED Status: Resolved Qualifiers: Chest pain type: other chest pain Qualified Code(s): R07.89 - Other chest pain; R07.8 - Other chest pain (2) Cholelithiasis Code(s): K80.20 - CALCULUS OF GALLBLADDER W/O CHOLECYSTITIS W/O OBSTRUCTION Status: Acute Qualifiers: Cholelithiasis location: gallbladder Cholecystitis presence: without cholecystitis Biliary obstruction: without biliary obstruction Qualified Code(s): K80.20 - Calculus of gallbladder without cholecystitis without obstruction (3) S/P laparoscopic cholecystectomy Code(s): Z90.49 - ACQUIRED ABSENCE OF OTHER SPECIFIED PARTS OF DIGESTIVE TRACT Status: Acute (4) Acute peritonitis Code(s): K65.0 - GENERALIZED (ACUTE) PERITONITIS Status: Acute Plan: due to bowel perforation (5) Small bowel perforation Code(s): K63.1 - PERFORATION OF INTESTINE (NONTRAUMATIC) Status: Acute (6) S/P small bowel resection Code(s): Z90.49 - ACQUIRED ABSENCE OF OTHER SPECIFIED PARTS OF DIGESTIVE TRACT Status: Acute (7) S/P laparotomy Status: Acute (8) Acute respiratory failure following trauma and surgery Code(s): J95.821 - ACUTE POSTPROCEDURAL RESPIRATORY FAILURE Status: Resolved (9) Postoperative ileus Code(s): K91.89 - OTH POSTPROCEDURAL COMPLICATIONS AND DISORDERS OF DGSTV SYS; K56.7 - ILEUS, UNSPECIFIED Status: Acute (10) Hypokalemia Code(s): E87.6 - HYPOKALEMIA Status: Acute - Plan old records reviewed/req, plan discussed w/ family, laura catheter, continue antibiotics, PT/OT, incentive spirometry, DVT proph w/SCDs 09/10/19- continue zosyn, replace potassium, ambulate as tolerated, await GI function to return, continue NJ tube feeding, post operative care as per surgeon , medication reviewed as above, symptomatic treatment, discussed with family
[2019-09-10] MEDS: Acetaminophen 325 MG TAB PO SCH ×2 (17:46→23:19)
[2019-09-10] MEDS: HYDROmorphone 10 mg/100 ml CADD IVPB PRN (19:32)
[2019-09-10] MEDS: Enoxaparin Sodium 40 MG/0.4 ML SYRINGE SC SCH (20:08)
--- NOTE | 2019-09-10 22:35 | PRG ---
DATE OF SERVICE: 09/10/2019 SUBJECTIVE: The patient was seen this evening during rounds. She was sitting up in bed with no signs of acute distress. She reported her pain is well controlled. Earlier in the day, she did have some belching and nausea. Nursing reported at that time it appeared that the NG tube was not working appropriately. It was flushed and the problem was resolved. Subsequently, the patient's nausea and belching did resolve. The patient reports ambulating with Physical Therapy today. Has not had any signs of return of bowel function yet. Tube feeds were increased to [address] Goldberg. OBJECTIVE: VITAL SIGNS: Temperature 97.5, pulse 88, respirations 16, oxygen saturation 97% on room air, blood pressure 112/70. GENERAL: Well-appearing elderly female, sitting up in bed with no signs of acute distress. PULMONARY: Equal chest rise and fall. Clear breath sounds bilaterally. No signs of acute respiratory distress. CARDIAC: Regular rate and rhythm. No murmurs, gallops, or rubs. GI: Abdomen is soft, appropriately tender to palpation and nondistended. Right-sided GENARO drain with serosanguineous output in bulb. EXTREMITIES: 2+ pulses in all extremities. No significant swelling noted. Gross motor and sensation are intact. NEURO: GCS is 15. ASSESSMENT: 1. Postop day #1 status post lap pauline and postop day #2 status post small bowel resection and adhesiolysis. 2. Acute postoperative respiratory failure, resolved. 3. Acute hypokalemia, stable. PLAN: Continue patient's current n.p.o. status. Continue NG tube to low intermittent wall suction with frequent irrigation. Continue tube feeds at 20 an hour. Continue ambulating as much as possible. We are pending return of bowel function. The patient will likely be able to be discharged home when she is tolerating a regular diet and there is return of bowel function. Job ID: [id number]
[2019-09-10] MEDS: diphenhydrAMINE 50 MG/ML VIAL IVP PRN (23:59)
[2019-09-11] MEDS: Piperacillin/Tazobactam 3.375 GM in Sodium Chloride 0.9% 100 ML IVPB SCH ×4 (01:00→20:22)
[2019-09-11] MEDS: Sodium Chloride 0.9% 1,000 ML IV SCH (04:55)
[2019-09-11] MEDS: Acetaminophen 325 MG TAB PO SCH ×4 (04:57→23:20)
[2019-09-11] MEDS: Ketorolac Tromethamine 30 MG/ML VIAL IVP SCH ×2 (05:00→15:04)
[2019-09-11 06:23] LABS: Anion Gap 11 mmol/L (10-20); BUN (Urea Nitrogen) 5 mg/dL (9.8-20.1); Calc. Creatinine Clearance 83 mL/min (70-130); Calcium 7.7 mg/dL (7.8-10.44); Carbon Dioxide 20 mmol/L (23-31); Chloride 114 mmol/L (98-107); Estimated GFR-MDRD Greater than 90; Glucose 111 mg/dL (80-115); Phosphorus 1.7 mg/dL (2.3-4.7); Potassium 2.9 mmol/L (3.5-5.1); Sodium 142 mmol/L (136-145)
[2019-09-11] MEDS: Fluconazole In NaCl,Iso-Osm 200 MG in Premix Bag 1 BAG IVPB SCH (09:39)
[2019-09-11] MEDS: Pantoprazole 40 MG VIAL IVP SCH (09:40)
[2019-09-11] MEDS ORDERED: Furosemide 20 MG/2 ML VIAL SLOW IVP SCH ×2 (11:00→23:00)
--- NOTE | 2019-09-11 11:38 | PDOC.HOSPP ---
- Subjective Encounter Date: 09/11/19 Encounter Time: 08:45 Subjective: Patient seen and examined. No new complaints. No overnight events - Objective Vital Signs & Weight: Vital Signs (12 hours) Temp Pulse Resp BP Pulse Ox 09/11/19 08:10 88 19 09/11/19 04:27 97.7 F 87 16 123/73 96 09/11/19 00:31 98.1 F 97 16 118/76 95 Weight Admit Weight 130 lb 10.342 oz Weight 130 lb 6.4 oz Most Recent Monitor Data Heart Rate from ECG 93 NIBP 118/87 NIBP BP-Mean 97 Respiration from ECG 16 SpO2 98 I&O: 09/10/19 09/11/19 09/12/19 06:59 06:59 06:59 Intake Total 3465 1730 Output Total 2215 1200 Balance 1250 530 Result Diagrams: 09/09/19 05:28 09/11/19 04:55 Additional Labs: Accuchecks 09/11/19 05:10 POC Glucose 102 EKG Reviewed by me: Yes (nsr) Hospitalist ROS - Review of Systems ENT: denies: ear pain, ear discharge, nose pain, nose discharge, nose congestion , mouth pain, mouth swelling, throat pain, throat swelling, other Respiratory: denies: cough, dry, shortness of breath, hemoptysis, SOB with excertion, pleuritic pain, sputum, wheezing, other Cardiovascular: denies: chest pain, palpitations, orthopnea, paroxysmal noc. dyspnea, edema, light headedness, other Gastrointestinal: denies: nausea, vomiting, abdominal pain, diarrhea, constipation, melena, hematochezia, other Genitourinary: denies: dysuria, frequency, incontinence, hematuria, retention, other Musculoskeletal: denies: neck pain, shoulder pain, arm pain, back pain, hand pain, leg pain, foot pain, other Skin: denies: rash, lesions, nora, bruising, other - Medication Medications: Active Medications Generic Name Dose Route Start Last Admin Trade Name Freq PRN Reason Stop Dose Admin Acetaminophen 650 mg 09/10/19 18:00 09/11/19 04:57 Tylenol PO Not Given Q6HR ELSA Albuterol/Ipratropium 3 ml 09/06/19 18:30 09/11/19 08:10 Duoneb NEB 3 ml TID-RT ELSA Administration Diphenhydramine HCl 25 mg 09/09/19 08:53 09/10/19 23:59 Benadryl IVP 25 mg Q3H PRN Administration Itching Enoxaparin Sodium 40 mg 09/09/19 21:00 09/10/19 20:08 Lovenox SC 40 mg 2100 ELSA Administration Hydromorphone HCl 0 mg 09/09/19 08:53 09/10/19 19:32 Dilaudid Cadd IVPB 10 mg INF PRN Administration Pain Piperacillin Sod/Tazobactam 100 mls @ 200 mls/hr 09/06/19 14:00 09/11/19 08: 50 Sod 3.375 gm/ Sodium Chloride IVPB 100 mls 0200,0800,1400,2000 ELSA Administration Fluconazole/Sodium Chloride 100 mls @ 100 mls/hr 09/09/19 09:00 09/11/19 09: 39 200 mg/ Device IVPB 100 mls DAILY ELSA Administration Ketorolac Tromethamine 15 mg 09/09/19 12:00 09/11/19 05:00 Toradol IVP 09/11/19 12:01 15 mg Q6HR ELSA Administration Ondansetron HCl 4 mg 09/04/19 07:46 09/04/19 18:21 Zofran IVP 4 mg Q6H PRN Administration Nausea/Vomiting Pantoprazole Sodium 40 mg 09/11/19 09:00 09/11/19 09:40 Protonix IVP 40 mg DAILY ELSA Administration - Exam General Appearance: NAD, awake alert Eye: PERRL, anicteric sclera ENT: normocephalic atraumatic, no oropharyngeal lesions ENT - other findings: NJ and NG tube in place Neck: supple, symmetric, no JVD, no thyromegaly Heart: RRR, no murmur, no gallops, no rubs, normal peripheral pulses Respiratory: CTAB, no wheezes, no rales, no ronchi Gastrointestinal: soft, non-tender, non-distended, no palpable masses Gastrointestinal - other findings: surgical site with dressing and GENARO drain in place Extremities: no cyanosis, no clubbing, no edema Skin: normal turgor, no lesions, no rashes Neurological: cranial nerve grossly intact, no focal deficits Musculoskeletal: normal tone, normal strength Psychiatric: normal affect, normal behavior Hosp A/P (1) Chest pain Code(s): R07.9 - CHEST PAIN, UNSPECIFIED Status: Resolved Qualifiers: Chest pain type: other chest pain Qualified Code(s): R07.89 - Other chest pain; R07.8 - Other chest pain (2) Cholelithiasis Code(s): K80.20 - CALCULUS OF GALLBLADDER W/O CHOLECYSTITIS W/O OBSTRUCTION Status: Acute Qualifiers: Cholelithiasis location: gallbladder Cholecystitis presence: without cholecystitis Biliary obstruction: without biliary obstruction Qualified Code(s): K80.20 - Calculus of gallbladder without cholecystitis without obstruction (3) S/P laparoscopic cholecystectomy Code(s): Z90.49 - ACQUIRED ABSENCE OF OTHER SPECIFIED PARTS OF DIGESTIVE TRACT Status: Acute (4) Acute peritonitis Code(s): K65.0 - GENERALIZED (ACUTE) PERITONITIS Status: Acute (5) Small bowel perforation Code(s): K63.1 - PERFORATION OF INTESTINE (NONTRAUMATIC) Status: Acute (6) S/P small bowel resection Code(s): Z90.49 - ACQUIRED ABSENCE OF OTHER SPECIFIED PARTS OF DIGESTIVE TRACT Status: Acute (7) S/P laparotomy Status: Acute (8) Acute respiratory failure following trauma and surgery Code(s): J95.821 - ACUTE POSTPROCEDURAL RESPIRATORY FAILURE Status: Resolved (9) Postoperative ileus Code(s): K91.89 - OTH POSTPROCEDURAL COMPLICATIONS AND DISORDERS OF DGSTV SYS; K56.7 - ILEUS, UNSPECIFIED Status: Acute (10) Hypokalemia Code(s): E87.6 - HYPOKALEMIA Status: Acute (11) Hypophosphatemia Code(s): E83.39 - OTHER DISORDERS OF PHOSPHORUS METABOLISM Status: Acute - Plan old records reviewed/req, continue antibiotics, incentive spirometry, DVT proph w/SCDs 09/10/19- continue zosyn, replace potassium, ambulate as tolerated, await GI function to return, continue NJ tube feeding, post operative care as per surgeon , medication reviewed as above, symptomatic treatment, discussed with family 09/11/19- Potassium phosphate replaced, continue NJ tube feeding, still no no bowel sound, continue post operative care, ambulate as tolerated, pt is table medically and recovering after surgery. medication reviewed as above, symptomatic treatment
[2019-09-11] MEDS ORDERED: traMADol HCl 50 MG TAB PO PRN ×2 (14:57)
[2019-09-11] MEDS ORDERED: Potassium Phosphate 30 MMOL in Sodium Chloride 0.9% 250 ML 250 ML IVPB SCH ×2 (15:00→21:00)
--- NOTE | 2019-09-11 17:43 | PRG ---
DATE OF SERVICE: 09/11/2019 SUBJECTIVE: The patient is currently on the surgical floor. She is postop day 3, status post exploratory laparotomy with segmental small bowel resection x2 and primary anastomosis. The patient also underwent extensive adhesiolysis. The patient overnight had no issues. She had a Dobbhoff and NG tube in place. She is tolerating her tube feeds at 20 mL/h. She had 380 mL out of her NG tube in the previous 24 hours. The patient reports passing gas this morning. No bowel movement. She also denies nausea or vomiting. OBJECTIVE: VITAL SIGNS: Temperature 97.7, heart rate 87, blood pressure 123/73 , respirations 16, oxygen saturation is 96% on room air. GENERAL: The patient is resting comfortably in bed. She is awake, alert, and oriented x3. HEENT: Unremarkable. The patient has a Dobbhoff tube and NG tube in her nares. HEART: Regular rate and rhythm. ABDOMEN: Soft, flat, nontender with active bowel sounds. GENARO drain has thin bloody fluid in it and reported 70 mL previous 24 hours. LABORATORY FINDINGS: Sodium 142, potassium 2.9, chloride 114, CO2 of 20, BUN 5, creatinine 0.59, glucose 111, magnesium 2.0, and phosphorus 1.7. There are no radiographs reviewed this morning. ASSESSMENT AND PLAN: 1. Status post exploratory laparotomy with segmental small-bowel resection x2 and primary anastomosis in addition to extensive adhesiolysis, postop day 3. 2. Acute postoperative respiratory failure, resolved. 3. Acute hypokalemia. 4. Acute hypophosphatemia. Plan will be to continue supportive care. We will replace her electrolytes. Her NG tube was discontinued today. We will allow her to have clear liquid diet. We will discontinue her [employer] and begin oral medications for pain. We will diurese her for 24 hours and repeat her labs in the morning. The patient was evaluated this morning with Dr. Goldberg. Job ID: [id number] MTDD
[2019-09-11] MEDS: Enoxaparin Sodium 40 MG/0.4 ML SYRINGE SC SCH (20:23)
--- NOTE | 2019-09-11 23:59 | PRG ---
DATE OF SERVICE: 09/11/2019 SUBJECTIVE: The patient was seen this evening during rounds. She was sitting up in bed with no signs of acute distress. She reported she felt much better today. The NG tube was removed. She was advanced to a clear liquid diet and has been diuresed with Lasix. She reported she is passing flatus. Has not had a bowel movement yet. OBJECTIVE: VITAL SIGNS: Temperature 97.7, pulse 97, respirations 18, oxygen saturation 95% on room air, blood pressure 118/71. GENERAL: Well-appearing elderly female, sitting up in bed with no signs of acute distress. PULMONARY: Equal chest rise and fall. Clear breath sounds bilaterally. No signs of acute respiratory distress. CARDIAC: Regular rate and rhythm. No murmurs, gallops, or rubs. GI: Abdomen is soft, nontender, nondistended. EXTREMITIES: 2+ pulses in all extremities. No significant swelling noted. Gross motor and sensation are intact. NEUROLOGIC: GCS is 15. ASSESSMENT: 1. Postop day #7 status post laparoscopic cholecystectomy. 2. Postoperative day #3 status post exploratory laparotomy with small-bowel resection x2 and primary anastomosis in addition to extensive adhesiolysis. 3. Acute postoperative respiratory failure, resolved. 4. Acute hypokalemia and hypophosphatemia. PLAN: We will continue supportive care and electrolyte replacement as needed. Continue current clear liquid diet with tube feeds at current rate. Continue walking as much as possible. We will reassess the patient's bowel function tomorrow and possibly advance to regular diet. We will repeat chemistry and renal function tomorrow for further assessment of electrolyte replacement needs. Job ID: [id number]
[2019-09-12] MEDS: Piperacillin/Tazobactam 3.375 GM in Sodium Chloride 0.9% 100 ML IVPB SCH ×4 (02:15→20:45)
[2019-09-12 05:56] LABS: Anion Gap 12 mmol/L (10-20); BUN (Urea Nitrogen) 6 mg/dL (9.8-20.1); Calc. Creatinine Clearance 80 mL/min (70-130); Calcium 7.9 mg/dL (7.8-10.44); Carbon Dioxide 28 mmol/L (23-31); Chloride 102 mmol/L (98-107); Estimated GFR-MDRD Greater than 90; Glucose 128 mg/dL (80-115); Magnesium 1.8 mg/dL (1.6-2.6); Phosphorus 3.9 mg/dL (2.3-4.7); Potassium 2.5 mmol/L (3.5-5.1); Sodium 139 mmol/L (136-145)
[2019-09-12] MEDS: Acetaminophen 325 MG TAB PO SCH (06:15)
[2019-09-12] MEDS ORDERED: Potassium Chloride 20 MEQ in Premix Bag 1 BAG IVPB SCH (06:30)
[2019-09-12] MEDS ORDERED: Potassium Chloride 20 MEQ TAB PO SCH (06:30)
[2019-09-12] MEDS: Cyclobenzaprine 10 MG TAB PO PRN ×2 (08:34→22:58)
[2019-09-12] MEDS: Fluconazole In NaCl,Iso-Osm 200 MG in Premix Bag 1 BAG IVPB SCH (09:32)
[2019-09-12] MEDS: Pantoprazole 40 MG VIAL IVP SCH (09:36)
--- NOTE | 2019-09-12 12:41 | RAD ---
Abdomen one view HISTORY: Abdominal pain. COMPARISON: 09/06/2019. FINDINGS: Visualized bowel gas pattern is nonspecific. Vertical skin staple row. Metallic clips over the gallbladder fossa. Radiopaque drain over the right abdomen and pelvis. Metallic tip of a Dobbhoff feeding catheter overlies the left upper quadrant. Based on its course out side of the gastric air bubble, it is favored to be within the fourth portion of the duodenum or within the proximal jejunum.
--- NOTE | 2019-09-12 12:51 | RAD ---
PORTABLE CHEST ONE VIEW: 09/12/2019 12:15 p.m. HISTORY: Chest pain. COMPARISON: 09/09/2019 FINDINGS: There has been interval removal of the endotracheal tube and the nasogastric tube. The feeding tube r emains in place. The heart size is normal. There is continued elevation of the right hemidiaphragm. N o lobar consolidation, pneumothoraces or pleural effusions are seen. POS: [facility]
--- NOTE | 2019-09-12 13:41 | PDOC.HOSPP ---
- Subjective Subjective: Seen and examined. Patient's biggest complaint right now is that the IV potassium is burning going into her arm. Patient does have some mild nausea though she has not vomited. Patient doesn't think that she can take oral potassium, she states that she will probably throw it up. Patient states that she didn't get much rest and was going to the bathroom several times in the night with IV Lasix. Tolerating diet though feels nauseous. Had BM, small. Daughter at bedside, all questions answered in detail. - Objective Vital Signs & Weight: Vital Signs (12 hours) Temp Pulse Resp BP Pulse Ox 09/12/19 13:09 76 20 09/12/19 11:01 97.6 F 79 20 96 09/12/19 08:06 76 18 09/12/19 07:14 97.8 F 87 20 134/82 93 L 09/12/19 05:30 96 09/12/19 04:02 98.2 F 75 18 117/76 96 Weight Admit Weight 130 lb 10.342 oz Weight 130 lb 6.4 oz Most Recent Monitor Data Heart Rate from ECG 93 NIBP 118/87 NIBP BP-Mean 97 Respiration from ECG 16 SpO2 98 I&O: 09/11/19 09/12/19 09/13/19 06:59 06:59 06:59 Intake Total 1730 60 Output Total 1200 20 Balance 530 40 Result Diagrams: 09/09/19 05:28 09/12/19 04:55 Additional Labs: Accuchecks 09/12/19 09/11/19 09/11/19 06:19 23:35 18:01 POC Glucose 113 H 102 111 H 09/11/19 09/11/19 09/10/19 11:57 00:38 17:16 POC Glucose 112 H 105 118 H Radiology Reviewed by me: Yes (CXR ) Hospitalist ROS - Review of Systems All other systems reviewed; all pertinent +/- noted in HPI/Subj - Medication Medications: Active Medications Generic Name Dose Route Start Last Admin Trade Name Freq PRN Reason Stop Dose Admin Albuterol/Ipratropium 3 ml 09/06/19 18:30 09/12/19 13:09 Duoneb NEB 3 ml TID-RT ELSA Administration Cyclobenzaprine HCl 5 mg 09/11/19 14:57 09/12/19 08:34 Flexeril PO 5 mg TID PRN Administration Muscle Spasm Diphenhydramine HCl 25 mg 09/09/19 08:53 09/10/19 23:59 Benadryl IVP 25 mg Q3H PRN Administration Itching Enoxaparin Sodium 40 mg 09/09/19 21:00 09/11/19 20:23 Lovenox SC 40 mg 2100 ELSA Administration Piperacillin Sod/Tazobactam 100 mls @ 200 mls/hr 09/06/19 14:00 09/12/19 08: 41 Sod 3.375 gm/ Sodium Chloride IVPB 09/14/19 14:01 100 mls 0200,0800,1400,2000 ELSA Administration Fluconazole/Sodium Chloride 100 mls @ 100 mls/hr 09/09/19 09:00 09/12/19 09: 32 200 mg/ Device IVPB 09/14/19 09:01 100 mls DAILY ELSA Administration Ondansetron HCl 4 mg 09/04/19 07:46 09/04/19 18:21 Zofran IVP 4 mg Q6H PRN Administration Nausea/Vomiting Pantoprazole Sodium 40 mg 09/11/19 09:00 09/12/19 09:36 Protonix IVP 40 mg DAILY ELSA Administration - Exam General Appearance: awake alert Eye: PERRL, anicteric sclera ENT: normocephalic atraumatic, moist mucosa Neck: supple, symmetric, no lymphadenopathy Heart: no murmur, no gallops, normal peripheral pulses Respiratory: CTAB, no wheezes, no rales, no ronchi, normal chest expansion Gastrointestinal: soft, non-distended, normal bowel sounds, no guarding, no rigidity, tender to palpation Extremities: no clubbing, no edema Skin: no lesions, no rashes Neurological: cranial nerve grossly intact, no focal deficits Musculoskeletal: generalized weakness Psychiatric: normal affect, A&O x 3 Hosp A/P (1) Acute peritonitis Code(s): K65.0 - GENERALIZED (ACUTE) PERITONITIS Status: Resolved (2) Cholelithiasis Code(s): K80.20 - CALCULUS OF GALLBLADDER W/O CHOLECYSTITIS W/O OBSTRUCTION Status: Resolved Qualifiers: Cholelithiasis location: gallbladder Cholecystitis presence: without cholecystitis Biliary obstruction: without biliary obstruction Qualified Code(s): K80.20 - Calculus of gallbladder without cholecystitis without obstruction (3) Hypokalemia Code(s): E87.6 - HYPOKALEMIA Status: Acute (4) Hypophosphatemia Code(s): E83.39 - OTHER DISORDERS OF PHOSPHORUS METABOLISM Status: Acute (5) Postoperative ileus Code(s): K91.89 - OTH POSTPROCEDURAL COMPLICATIONS AND DISORDERS OF DGSTV SYS; K56.7 - ILEUS, UNSPECIFIED Status: Acute (6) S/P laparoscopic cholecystectomy Code(s): Z90.49 - ACQUIRED ABSENCE OF OTHER SPECIFIED PARTS OF DIGESTIVE TRACT Status: Resolved (7) S/P small bowel resection Code(s): Z90.49 - ACQUIRED ABSENCE OF OTHER SPECIFIED PARTS OF DIGESTIVE TRACT Status: Resolved (8) Small bowel perforation Code(s): K63.1 - PERFORATION OF INTESTINE (NONTRAUMATIC) Status: Resolved (9) Acute respiratory failure following trauma and surgery Code(s): J95.821 - ACUTE POSTPROCEDURAL RESPIRATORY FAILURE Status: Resolved - Plan Plan: medical/surgical unit general surgery consultation, recommendations appreciated patient is proceeding as expected postoperatively tolerating clear liquid diet NG tube in place for enteral nutrition having bowel movement today volume overload with Lasix on antibiotics/antifungals per surgery continue other medications as able symptomatic therapy as needed for nausea and vomiting replace electrolytes as needed encourage ambulation
[2019-09-12] MEDS: Furosemide 20 MG/2 ML VIAL SLOW IVP SCH ×2 (16:03→21:03)
[2019-09-12] MEDS: Acetaminophen 1,000 MG in Premix Bag 1 BAG IVPB SCH ×3 (16:12→22:58)
--- NOTE | 2019-09-12 17:02 | PRG ---
DATE OF SERVICE: 09/12/2019 SUBJECTIVE: The patient remains on the surgical floor. The patient is postop day #4 exploratory laparotomy, small-bowel resection with primary anastomosis x2, and adhesiolysis. She is also postop day 8 laparoscopic cholecystectomy. The patient is currently resting comfortably. The patient reports not being able to sleep well last night due to pain. The patient did refuse her p.o. oral medications as she was nauseated. The patient states that Zofran makes her more nauseated. The patient continues to pass flatus, but has not had a bowel movement. The patient continues to have tube feeds at 20 mL an hour. The patient is tolerating a clear liquid diet with some nausea, but no vomiting. OBJECTIVE: VITAL SIGNS: Temperature 97.8, pulse 76, respirations 18, SpO2 96% on room air, and blood pressure 134/82. GENERAL: Well-appearing elderly female, lying in hospital bed, resting comfortably, in no acute distress. PULMONARY: Equal chest rise and fall. Bilateral breath sounds clear. No respiratory distress. CARDIAC: Regular rate, regular rhythm. No murmurs. ABDOMEN: Soft, nondistended, mildly tender. Abdominal dressing is clean, dry, and intact. GENARO drain with serosanguineous output. EXTREMITIES: Moves all extremities, positive distal pulses. LABORATORY DATA: Sodium 139, potassium 2.5, chloride 102, BUN 6, creatinine 0.61, estimated GFR greater than 90, glucose 128, phosphorus 3.9, and magnesium 1.8. IMAGING STUDIES: Abdominal x-ray, bowel gas pattern is nonspecific. Vertical skin staple row. Metallic clips over the gallbladder fossa. Dobbhoff feeding catheter overlies the left upper quadrant within the portion of the duodenum or within the proximal jejunum. Chest x-ray, impression, heart size is normal. There is continued elevation of the right hemidiaphragm. No lobar consolidation, pneumothoraces, or pleural effusions are seen. ASSESSMENT: 1. Postoperative day #8 status post laparoscopic cholecystectomy. 2. Postoperative day #4 status post exploratory laparotomy with small-bowel resection x2 and primary anastomosis in addition to extensive adhesiolysis. 3. Acute postoperative respiratory failure, resolved. 4. Acute hypokalemia and hypophosphatemia. PLAN: Continue supportive care and electrolyte replacement as needed. Continue current clear liquid diet with tube feeds at 20 mL an hour. Continue to have the patient walk as much as possible. The patient is pending return of bowel function. We will repeat labs tomorrow to assess for further electrolyte replacement needs. We will switch the patient to Ofirmev as the patient has been nauseated with oral pain regimen. We will also place an order for a midline as the patient's current peripheral line seems to be infiltrated. We will continue Lasix 20 mg q.8 hours for another 24 hours. We will continue to monitor Is and Os closely. The patient was evaluated by Dr. Goldberg during morning rounds. The plan was discussed with the patient, who agrees. Job ID: [id number] MTDD
[2019-09-12 18:05] LABS: Anion Gap 14 mmol/L (10-20); BUN (Urea Nitrogen) 7 mg/dL (9.8-20.1); Calc. Creatinine Clearance 83 mL/min (70-130); Calcium 8.2 mg/dL (7.8-10.44); Carbon Dioxide 27 mmol/L (23-31); Chloride 103 mmol/L (98-107); Estimated GFR-MDRD Greater than 90; Glucose 130 mg/dL (80-115); Sodium 141 mmol/L (136-145)
[2019-09-12] MEDS: Enoxaparin Sodium 40 MG/0.4 ML SYRINGE SC SCH (20:48)
[2019-09-12] MEDS: diphenhydrAMINE 50 MG/ML VIAL IVP PRN (22:58)
--- NOTE | 2019-09-13 01:07 | PRG ---
DATE OF SERVICE: 09/13/2019 SUBJECTIVE: It was attempted to see the patient this afternoon. However, there was a note on the door requesting minimalizing interruptions as the patient has a difficult time sleeping. I did speak with the nurse who reported the patient had no complaints today and she was very comfortable. He also did report to me that the patient had two bowel movements and has been tolerating her clear liquid diet. She continues to receive potassium today for hypokalemia. OBJECTIVE: VITAL SIGNS: Temperature 98.2, pulse 79, respirations 16, oxygen saturation 96% on room air, blood pressure 114/69. ASSESSMENT: 1. Status post cholecystitis, postoperative day #9 status post laparoscopic cholecystectomy and postoperative day #5 status post exploratory laparotomy, small-bowel resection with primary anastomosis x2 and adhesiolysis. 2. History of chronic constipation. PLAN: Continue current clear liquid diet and tube feeds at 20 an hour. The patient to have a bowel movement today twice. Continue current pain management. Continue to closely monitor patient's hypokalemia. She continues to receive potassium IV. The patient refusing p.o. potassium today. Dr. Goldberg will see the patient again tomorrow and make further recommendations on advancing her diet. Job ID: [id number]
[2019-09-13] MEDS: Piperacillin/Tazobactam 3.375 GM in Sodium Chloride 0.9% 100 ML IVPB SCH ×2 (01:17→08:32)
[2019-09-13] MEDS: Acetaminophen 1,000 MG in Premix Bag 1 BAG IVPB SCH (05:52)
[2019-09-13] MEDS: Furosemide 20 MG/2 ML VIAL SLOW IVP SCH ×2 (05:53→13:26)
[2019-09-13 06:53] LABS: Anion Gap 12 mmol/L (10-20); BUN (Urea Nitrogen) 11 mg/dL (9.8-20.1); Calc. Creatinine Clearance 72 mL/min (70-130); Calcium 8.3 mg/dL (7.8-10.44); Carbon Dioxide 29 mmol/L (23-31); Chloride 103 mmol/L (98-107); Estimated GFR-MDRD 86; Glucose 133 mg/dL (80-115); Magnesium 2.1 mg/dL (1.6-2.6); Potassium 3.2 mmol/L (3.5-5.1); Sodium 141 mmol/L (136-145)
[2019-09-13] MEDS ORDERED: Potassium Phosphate 30 MMOL in Sodium Chloride 0.9% 500 ML IVPB SCH (07:45)
[2019-09-13] MEDS: Fluconazole In NaCl,Iso-Osm 200 MG in Premix Bag 1 BAG IVPB SCH (08:33)
[2019-09-13] MEDS: Pantoprazole 40 MG VIAL IVP SCH (08:33)
[2019-09-13] MEDS ORDERED: traMADol HCl 50 MG TAB PO PRN (11:25)
[2019-09-13] MEDS ORDERED: Potassium Phosphate 30 MMOL in Sodium Chloride 0.9% 250 ML 250 ML IVPB SCH (11:45)
--- NOTE | 2019-09-13 12:31 | PRG ---
DATE OF SERVICE: 09/13/2019 SUBJECTIVE: The patient remains on the surgical floor. The patient is postop day #5 exploratory laparotomy, small-bowel resection with primary anastomosis x2, and adhesiolysis. She is also postop day #9 laparoscopic cholecystectomy. The patient is currently up in the restroom, sitting on the toilet. The patient states she has had a total of four bowel movements since surgery. The patient does state that she just had a formed stool. The patient does report a decrease in p.o. intake as the Dobbhoff feeding tube is irritating to her throat. The patient's only complaint is the pain and irritation from the Dobbhoff tube at this time. The patient states that she did have a better night's sleep last night. The patient does report one episode of vomiting last night. The patient denies any nausea at this time. OBJECTIVE: VITAL SIGNS: Temperature 97.9, pulse 69, respirations 14, SpO2 of 100% on room air, blood pressure 110/71. GENERAL: Elderly female, awake, alert, sitting on the toilet, in no acute distress. PULMONARY: Equal chest rise and fall, no respiratory distress. CARDIAC: Regular rate, regular rhythm. ABDOMEN: Abdominal dressing is clean, dry, and intact with GENARO drain in place. EXTREMITIES: Moves all extremities, positive distal pulses. Neurovascularly intact x4. LABORATORY DATA: Sodium 141, potassium 3.2, chloride 103, BUN 11, creatinine 0.68, estimated GFR 86, glucose 133, calcium 8.3, phosphorus 3.0, magnesium 2.1. IMPRESSION: 1. Postop day #9, status post laparoscopic cholecystectomy. 2. Postop day #5, status post exploratory laparotomy with small-bowel resection x2 and primary anastomosis in addition to extensive adhesiolysis. 3. Postoperative respiratory failure, resolved. 4. Acute hypokalemia. PLAN: Continue supportive care. Continue to replace electrolytes as needed. We will repeat labs in the morning. Continue current clear liquid diet and tube feeds at this time. Continue to encourage the patient to walk as much as possible. Possibly discontinue Dobbhoff and advance diet later today since she has has return of bowel function. The plan will be discussed with Dr. Goldberg after this dictation. The plan was discussed with the patient and family who agree. Job ID: [id number] [facility]
[2019-09-13] MEDS: Acetaminophen 500 MG TAB PO SCH ×3 (13:09→23:43)
[2019-09-13] MEDS: traMADol HCl 50 MG TAB PO SCH ×3 (13:09→23:43)
--- NOTE | 2019-09-13 15:59 | PDOC.HOSPP ---
- Subjective Subjective: Seen and examined. Clinically improving. NG tube removed. Tolerating diet. Moving bowels. Has had to walks around the stern today. Overall having a much better day. All questions answered in detail. - Objective Vital Signs & Weight: Vital Signs (12 hours) Temp Pulse Resp BP Pulse Ox 09/13/19 15:38 98.3 F 83 14 103/67 95 09/13/19 13:11 66 16 99 09/13/19 11:21 97.8 F 69 14 119/77 99 09/13/19 07:34 97.9 F 69 14 110/71 100 09/13/19 06:59 66 16 96 Weight Admit Weight 130 lb 10.342 oz Weight 130 lb 6.4 oz Most Recent Monitor Data Heart Rate from ECG 93 NIBP 118/87 NIBP BP-Mean 97 Respiration from ECG 16 SpO2 98 I&O: 09/12/19 09/13/19 09/14/19 06:59 06:59 06:59 Intake Total 60 2070 Output Total 25 1999 Balance 35 70 Result Diagrams: 09/09/19 05:28 09/13/19 05:40 Additional Labs: Accuchecks 09/13/19 09/13/19 06:03 00:39 POC Glucose 134 H 127 H Hospitalist ROS - Review of Systems All other systems reviewed; all pertinent +/- noted in HPI/Subj - Medication Medications: Active Medications Generic Name Dose Route Start Last Admin Trade Name Freq PRN Reason Stop Dose Admin Acetaminophen 1,000 mg 09/13/19 12:00 09/13/19 13:09 Tylenol PO Not Given Q6HR ELSA Albuterol/Ipratropium 3 ml 09/06/19 18:30 09/13/19 13:11 Duoneb NEB 3 ml TID-RT ELSA Administration Cyclobenzaprine HCl 5 mg 09/11/19 14:57 09/12/19 22:58 Flexeril PO 5 mg TID PRN Administration Muscle Spasm Diphenhydramine HCl 25 mg 09/09/19 08:53 09/12/19 22:58 Benadryl IVP 25 mg Q3H PRN Administration Itching Enoxaparin Sodium 40 mg 09/09/19 21:00 09/12/19 20:48 Lovenox SC 40 mg 2100 ELSA Administration Fluconazole/Sodium Chloride 100 mls @ 100 mls/hr 09/09/19 09:00 09/13/19 08: 33 200 mg/ Device IVPB 09/14/19 09:01 100 mls DAILY ELSA Administration Ondansetron HCl 4 mg 09/04/19 07:46 09/04/19 18:21 Zofran IVP 4 mg Q6H PRN Administration Nausea/Vomiting Tramadol HCl 50 mg 09/13/19 12:00 09/13/19 13:09 Ultram PO Not Given Q6HR ELSA - Exam General Appearance: NAD, awake alert Eye: anicteric sclera ENT: normocephalic atraumatic, moist mucosa Neck: supple, symmetric, no lymphadenopathy Heart: RRR, no murmur, no gallops Respiratory: CTAB, no wheezes, no rales, no ronchi Gastrointestinal: soft, non-distended, no guarding, no rigidity, tender to palpation Extremities: no edema Skin: no lesions, no rashes Neurological: cranial nerve grossly intact, no focal deficits Musculoskeletal: generalized weakness Psychiatric: normal affect, A&O x 3 Hosp A/P (1) Acute peritonitis Code(s): K65.0 - GENERALIZED (ACUTE) PERITONITIS Status: Resolved (2) Cholelithiasis Code(s): K80.20 - CALCULUS OF GALLBLADDER W/O CHOLECYSTITIS W/O OBSTRUCTION Status: Resolved Qualifiers: Cholelithiasis location: gallbladder Cholecystitis presence: without cholecystitis Biliary obstruction: without biliary obstruction Qualified Code(s): K80.20 - Calculus of gallbladder without cholecystitis without obstruction (3) Hypokalemia Code(s): E87.6 - HYPOKALEMIA Status: Acute (4) Hypophosphatemia Code(s): E83.39 - OTHER DISORDERS OF PHOSPHORUS METABOLISM Status: Acute (5) Postoperative ileus Code(s): K91.89 - OTH POSTPROCEDURAL COMPLICATIONS AND DISORDERS OF DGSTV SYS; K56.7 - ILEUS, UNSPECIFIED Status: Acute (6) S/P laparoscopic cholecystectomy Code(s): Z90.49 - ACQUIRED ABSENCE OF OTHER SPECIFIED PARTS OF DIGESTIVE TRACT Status: Resolved (7) S/P small bowel resection Code(s): Z90.49 - ACQUIRED ABSENCE OF OTHER SPECIFIED PARTS OF DIGESTIVE TRACT Status: Resolved (8) Small bowel perforation Code(s): K63.1 - PERFORATION OF INTESTINE (NONTRAUMATIC) Status: Resolved (9) Acute respiratory failure following trauma and surgery Code(s): J95.821 - ACUTE POSTPROCEDURAL RESPIRATORY FAILURE Status: Resolved - Plan Plan: medical/surgical unit general surgery consultation, recommendations appreciated patient is proceeding as expected postoperatively tolerating diet NG tube out having bowel movements volume overload with Lasix on antibiotics/antifungals per surgery continue other medications as able symptomatic therapy as needed for nausea and vomiting replace electrolytes as needed encourage ambulation
[2019-09-13] MEDS: Enoxaparin Sodium 40 MG/0.4 ML SYRINGE SC SCH (19:57)
[2019-09-13] MEDS: diphenhydrAMINE 50 MG/ML VIAL IVP PRN (21:22)
--- NOTE | 2019-09-13 22:57 | PRG ---
DATE OF SERVICE: 09/13/2019 SUBJECTIVE: The patient was seen this evening, sitting up in bed with no signs of acute distress. The patient did appear to be mildly anxious. She was advanced to regular diet today. She did have two small meals and after discussing the patient's anxiety, she did report that she was very nervous about eating too much too quickly and possibly messing up the repairs completed in the OR. We did further discuss the importance of nutrition in healing and that her diet would not affect the surgical repairs. She did report she understood. She did have four bowel movements today and continues to ambulate regularly. OBJECTIVE: VITAL SIGNS: Temperature 98.2, pulse 94, respirations 16, oxygen saturation 96% on room air, and blood pressure 105/68. GENERAL: Well-appearing elderly female, sitting up in bed with no signs of acute distress. PULMONARY: Equal chest rise and fall. Clear breath sounds bilaterally. No signs of acute respiratory distress. ABDOMEN: Soft, nontender, and nondistended. CARDIAC: Regular rate and rhythm. EXTREMITIES: 2+ pulses in all extremities. Gross motor and sensation are intact. ASSESSMENT: 1. Postop day 5, status post exploratory laparotomy, small-bowel resection with primary anastomosis x2, and adhesiolysis. 2. Postop peritonitis, resolved. 3. Incisional abscess formation, stable. 4. History of chronic constipation. PLAN: Continue current regular diet and p.o. pain control. We will start Ensure for the patient today. Dr. Goldberg did also start Florastor today. We will continue that. Continue ambulation. Job ID: [id number]
[2019-09-14] MEDS ORDERED: Promethazine HCl 25 MG/ML VIAL SLOW IVP PRN (04:49)
[2019-09-14] MEDS: traMADol HCl 50 MG TAB PO SCH ×3 (05:00→17:24)
[2019-09-14] MEDS: Acetaminophen 500 MG TAB PO SCH ×3 (05:02→17:23)
[2019-09-14 05:38] LABS: Anion Gap 14 mmol/L (10-20); BUN (Urea Nitrogen) 10 mg/dL (9.8-20.1); Calc. Creatinine Clearance 78 mL/min (70-130); Calcium 8.4 mg/dL (7.8-10.44); Carbon Dioxide 24 mmol/L (23-31); Chloride 107 mmol/L (98-107); Estimated GFR-MDRD Greater than 90; Glucose 113 mg/dL (80-115); Magnesium 2.1 mg/dL (1.6-2.6); Potassium 3.6 mmol/L (3.5-5.1); Sodium 141 mmol/L (136-145)
[2019-09-14] MEDS: Fluconazole In NaCl,Iso-Osm 200 MG in Premix Bag 1 BAG IVPB SCH (09:21)
[2019-09-14] MEDS: Saccharomyces boulardii 250 MG CAP PO SCH (09:21)
--- NOTE | 2019-09-14 13:11 | PDOC.HOSPP ---
- Subjective Subjective: Seen and examined. Clinically improving. Tolerating diet. Moving bowels. Labs within normal limits. She is working with physical therapy this morning and doing well. - Objective Vital Signs & Weight: Vital Signs (12 hours) Temp Pulse Resp BP Pulse Ox 09/14/19 08:14 80 18 09/14/19 08:00 97.9 F 68 20 97/61 94 L Weight Admit Weight 130 lb 10.342 oz Weight 130 lb 6.4 oz Most Recent Monitor Data Heart Rate from ECG 93 NIBP 118/87 NIBP BP-Mean 97 Respiration from ECG 16 SpO2 98 I&O: 09/13/19 09/14/19 09/15/19 06:59 06:59 06:59 Intake Total 2069 1000 Output Total 1999 1500 Balance 70 -500 Result Diagrams: 09/09/19 05:28 09/14/19 04:46 Hospitalist ROS - Review of Systems All other systems reviewed; all pertinent +/- noted in HPI/Subj - Medication Medications: Active Medications Generic Name Dose Route Start Last Admin Trade Name Freq PRN Reason Stop Dose Admin Acetaminophen 1,000 mg 09/13/19 12:00 09/14/19 11:55 Tylenol PO Not Given Q6HR ELSA Albuterol/Ipratropium 3 ml 09/06/19 18:30 09/14/19 08:14 Duoneb NEB 3 ml TID-RT ELSA Administration Cyclobenzaprine HCl 5 mg 09/11/19 14:57 09/12/19 22:58 Flexeril PO 5 mg TID PRN Administration Muscle Spasm Diphenhydramine HCl 25 mg 09/09/19 08:53 09/13/19 21:22 Benadryl IVP 25 mg Q3H PRN Administration Itching Enoxaparin Sodium 40 mg 09/09/19 21:00 09/13/19 19:57 Lovenox SC 40 mg 2100 ELSA Administration Ondansetron HCl 4 mg 09/04/19 07:46 09/04/19 18:21 Zofran IVP 4 mg Q6H PRN Administration Nausea/Vomiting Pantoprazole Sodium 40 mg 09/14/19 09:00 09/14/19 09:21 Protonix PO 40 mg DAILY ELSA Administration Promethazine HCl 12.5 mg 09/14/19 04:49 09/14/19 04:52 Phenergan SLOW IVP 12.5 mg Q4H PRN Administration Nausea/Vomiting Saccharomyces Gwendolyni 250 mg 09/14/19 09:00 09/14/19 09:21 Florastor PO 250 mg DAILY ELSA Administration Tramadol HCl 50 mg 09/13/19 12:00 09/14/19 11:55 Ultram PO Not Given Q6HR ELSA - Exam General Appearance: NAD, awake alert Eye: PERRL, anicteric sclera ENT: normocephalic atraumatic, moist mucosa Neck: supple, no lymphadenopathy Heart: RRR, no murmur, no gallops, no rubs Respiratory: CTAB, no wheezes, no rales, no ronchi, normal chest expansion Gastrointestinal: soft, non-tender, no guarding, no rigidity Extremities: no edema Skin: no lesions, no rashes Neurological: cranial nerve grossly intact, no focal deficits Musculoskeletal: generalized weakness Psychiatric: normal affect, A&O x 3 Hosp A/P (1) Acute peritonitis Code(s): K65.0 - GENERALIZED (ACUTE) PERITONITIS Status: Resolved (2) Cholelithiasis Code(s): K80.20 - CALCULUS OF GALLBLADDER W/O CHOLECYSTITIS W/O OBSTRUCTION Status: Resolved Qualifiers: Cholelithiasis location: gallbladder Cholecystitis presence: without cholecystitis Biliary obstruction: without biliary obstruction Qualified Code(s): K80.20 - Calculus of gallbladder without cholecystitis without obstruction (3) Hypokalemia Code(s): E87.6 - HYPOKALEMIA Status: Acute (4) Hypophosphatemia Code(s): E83.39 - OTHER DISORDERS OF PHOSPHORUS METABOLISM Status: Acute (5) Postoperative ileus Code(s): K91.89 - OTH POSTPROCEDURAL COMPLICATIONS AND DISORDERS OF DGSTV SYS; K56.7 - ILEUS, UNSPECIFIED Status: Acute (6) S/P laparoscopic cholecystectomy Code(s): Z90.49 - ACQUIRED ABSENCE OF OTHER SPECIFIED PARTS OF DIGESTIVE TRACT Status: Resolved (7) S/P small bowel resection Code(s): Z90.49 - ACQUIRED ABSENCE OF OTHER SPECIFIED PARTS OF DIGESTIVE TRACT Status: Resolved (8) Small bowel perforation Code(s): K63.1 - PERFORATION OF INTESTINE (NONTRAUMATIC) Status: Resolved (9) Acute respiratory failure following trauma and surgery Code(s): J95.821 - ACUTE POSTPROCEDURAL RESPIRATORY FAILURE Status: Resolved - Plan Plan: medical/surgical unit general surgery consultation, recommendations appreciated patient is proceeding as expected postoperatively tolerating diet NG tube out having bowel movements on antibiotics/antifungals per surgery continue other medications as able symptomatic therapy as needed for nausea and vomiting replace electrolytes as needed encourage ambulation
--- NOTE | 2019-09-14 14:37 | PRG ---
DATE OF SERVICE: 09/14/2019 SUBJECTIVE: The patient remains on the surgical floor. The patient is postop day #6, status post exploratory laparotomy, small bowel resection with primary anastomosis x2, and adhesiolysis. The patient is also postop day #10, laparoscopic cholecystectomy. The patient is sitting up in the hospital bed, in no acute distress. The patient reports feeling much better. The patient continues to have formed bowel movements. The patient continues to tolerate a regular diet. The patient did have an episode of nausea last night, which has improved. The patient voices no complaints at this time. OBJECTIVE: VITAL SIGNS: Temperature 97.9, pulse 68, respirations 18, SpO2 of 94% on room air, and blood pressure 97/61. GENERAL: Elderly female, awake, alert, sitting up in bed, in no acute distress. PULMONARY: Equal chest rise and fall, no respiratory distress. CARDIAC: Regular rate. Regular rhythm. ABDOMEN: Soft and nontender. Abdominal dressing is clean, dry, and intact. EXTREMITIES: Moves all extremities, positive distal pulses, neurovascularly intact x4. LABORATORY DATA: Sodium 141, potassium 3.6, chloride 107, BUN 10, creatinine 0.63, estimated GFR greater than 90, glucose 113, calcium 8.4, phosphorus 3.0, and magnesium 2.1. IMAGING STUDIES: There is no diagnostics to review today. IMPRESSION: 1. Postop day #10, status post laparoscopic cholecystectomy. 2. Postop day #6, status post exploratory laparotomy with small-bowel resection x2 and primary anastomosis in addition to extensive adhesiolysis. 3. Postoperative respiratory failure, resolved. 4. Hypokalemia, improved. PLAN: Continue supportive care. The patient's abdominal dressing was removed. Site is well approximated without signs of infection. May leave abdominal dressing off at this time. Can place a Band-Aid on the site, where the patient's GENARO drain was removed. Continue to have the patient walk as much as possible. Continue regular diet as tolerated. The patient is pending placement to inpatient rehab versus going home with home health. The plan was discussed with the patient and family, who agree. The patient was examined by Dr. Goldberg during morning rounds. Job ID: [id number]
[2019-09-14] MEDS: Enoxaparin Sodium 40 MG/0.4 ML SYRINGE SC SCH (21:39)
--- NOTE | 2019-09-15 00:41 | PRG ---
DATE OF SERVICE: 09/15/2019 SUBJECTIVE: The patient was seen this evening, sitting up in bed with no signs of acute distress. She reported tolerating a regular diet and having a bowel movement. States pain is well controlled. Continues to ambulate. OBJECTIVE: VITAL SIGNS: Temperature 98.1, pulse 79, respirations 16, oxygen saturation 95% on room air, and blood pressure 98/62. GENERAL: Well-appearing elderly female, sitting up in bed with no signs of acute distress. PULMONARY: Equal chest rise and fall. No signs of acute respiratory distress. ABDOMEN: Soft, nontender, nondistended. EXTREMITIES: 2+ pulses in all extremities. Gross motor and sensation are intact. No significant swelling noted. ASSESSMENT: Postop day 10, status post laparoscopic cholecystectomy and postop day 6, status post exploratory laparotomy, adhesiolysis, and small-bowel resection with primary anastomosis x2. PLAN: The patient is not tolerating a regular diet. She is having multiple bowel movements. She is ambulating. Pain is well controlled with Tylenol. Reports she feels like she will be able to go home. She has good family support. Likely discharge tomorrow. Job ID: [id number]
[2019-09-15] MEDS: Acetaminophen 500 MG TAB PO SCH ×3 (00:49→13:08)
[2019-09-15] MEDS: traMADol HCl 50 MG TAB PO SCH ×3 (00:49→13:08)
[2019-09-15] MEDS: Saccharomyces boulardii 250 MG CAP PO SCH (08:22)
[2019-09-15 13:09] VITALS: BP 104/62; TEMP 98.1
--- NOTE | 2019-09-15 14:18 | PDOC.HOSPP ---
- Subjective Subjective: Seen and examined. Breathing well on room air. Tolerating diet. Moving bowels. If continues to improve will plan for discharge home with home healthcare. - Objective Vital Signs & Weight: Vital Signs (12 hours) Temp Pulse Resp BP Pulse Ox 09/15/19 12:30 98.1 F 79 18 104/62 94 L 09/15/19 08:00 98.0 F 85 22 H 103/68 97 09/15/19 06:50 71 20 95 Weight Admit Weight 130 lb 10.342 oz Weight 130 lb 6.4 oz Most Recent Monitor Data Heart Rate from ECG 93 NIBP 118/87 NIBP BP-Mean 97 Respiration from ECG 16 SpO2 98 I&O: 09/14/19 09/15/19 09/16/19 06:59 06:59 06:59 Intake Total 1000 1390 Output Total 1500 800 Balance -500 590 Result Diagrams: 09/09/19 05:28 09/14/19 04:46 Hospitalist ROS - Review of Systems All other systems reviewed; all pertinent +/- noted in HPI/Subj - Medication Medications: Active Medications Generic Name Dose Route Start Last Admin Trade Name Freq PRN Reason Stop Dose Admin Acetaminophen 1,000 mg 09/13/19 12:00 09/15/19 13:08 Tylenol PO Not Given Q6HR ELSA Albuterol/Ipratropium 3 ml 09/06/19 18:30 09/15/19 13:04 Duoneb NEB Not Given TID-RT ELSA Cyclobenzaprine HCl 5 mg 09/11/19 14:57 09/12/19 22:58 Flexeril PO 5 mg TID PRN Administration Muscle Spasm Diphenhydramine HCl 25 mg 09/09/19 08:53 09/13/19 21:22 Benadryl IVP 25 mg Q3H PRN Administration Itching Enoxaparin Sodium 40 mg 09/09/19 21:00 09/14/19 21:39 Lovenox SC 40 mg 2100 ELSA Administration Ondansetron HCl 4 mg 09/04/19 07:46 09/04/19 18:21 Zofran IVP 4 mg Q6H PRN Administration Nausea/Vomiting Pantoprazole Sodium 40 mg 09/14/19 09:00 09/15/19 08:22 Protonix PO 40 mg DAILY ELSA Administration Promethazine HCl 12.5 mg 09/14/19 04:49 09/14/19 04:52 Phenergan SLOW IVP 12.5 mg Q4H PRN Administration Nausea/Vomiting Saccharomyces Boulardii 250 mg 09/14/19 09:00 09/15/19 08:22 Florastor PO 250 mg DAILY ELSA Administration Tramadol HCl 50 mg 09/13/19 12:00 09/15/19 13:08 Ultram PO Not Given Q6HR ELSA - Exam General Appearance: NAD, awake alert Eye: anicteric sclera ENT: normocephalic atraumatic, moist mucosa Neck: supple, symmetric, no lymphadenopathy Heart: no murmur, no gallops, no rubs Respiratory: CTAB, no wheezes, normal chest expansion Gastrointestinal: soft, non-tender, no rigidity Extremities: no edema Skin: no lesions, no rashes Neurological: cranial nerve grossly intact, no focal deficits Musculoskeletal: generalized weakness Psychiatric: A&O x 3 Hosp A/P (1) Acute peritonitis Code(s): K65.0 - GENERALIZED (ACUTE) PERITONITIS Status: Resolved (2) Cholelithiasis Code(s): K80.20 - CALCULUS OF GALLBLADDER W/O CHOLECYSTITIS W/O OBSTRUCTION Status: Resolved Qualifiers: Cholelithiasis location: gallbladder Cholecystitis presence: without cholecystitis Biliary obstruction: without biliary obstruction Qualified Code(s): K80.20 - Calculus of gallbladder without cholecystitis without obstruction (3) Hypokalemia Code(s): E87.6 - HYPOKALEMIA Status: Acute (4) Hypophosphatemia Code(s): E83.39 - OTHER DISORDERS OF PHOSPHORUS METABOLISM Status: Acute (5) Postoperative ileus Code(s): K91.89 - OTH POSTPROCEDURAL COMPLICATIONS AND DISORDERS OF DGSTV SYS; K56.7 - ILEUS, UNSPECIFIED Status: Acute (6) S/P laparoscopic cholecystectomy Code(s): Z90.49 - ACQUIRED ABSENCE OF OTHER SPECIFIED PARTS OF DIGESTIVE TRACT Status: Resolved (7) S/P small bowel resection Code(s): Z90.49 - ACQUIRED ABSENCE OF OTHER SPECIFIED PARTS OF DIGESTIVE TRACT Status: Resolved (8) Small bowel perforation Code(s): K63.1 - PERFORATION OF INTESTINE (NONTRAUMATIC) Status: Resolved (9) Acute respiratory failure following trauma and surgery Code(s): J95.821 - ACUTE POSTPROCEDURAL RESPIRATORY FAILURE Status: Resolved - Plan Plan: medical/surgical unit general surgery consultation, recommendations appreciated patient is proceeding as expected postoperatively tolerating diet NG tube remains out having bowel movements on antibiotics/antifungals per surgery continue other medications as able symptomatic therapy as needed for nausea and vomiting replace electrolytes as needed encourage ambulation CM to help set up Home healthcare
--- NOTE | 2019-09-17 04:10 | PQF ---
[employer] Transport Coordinator Crystal Reports Winform ViewerNORTHERN COLORADO REHABILITATION HOSPITALZEYAD GARCIA AYSHA GARAY [id number] [facility] [id number] CLINICAL DOCUMENTATION CLARIFICATION FORM: POST DISCHARGE Addendum to original discharge summary date: ____ Late entry note date: __ DATE: 09/17/19 ATTN: Jose Antonio Penn Please exercise your independent, professional judgment in responding to the clarification form. Clinical indicators are provided on the bottom of this form for your review Can you please further specify if perforated small bowel is a complication of laparoscopic cholecystectomy or not? Please check appropriate box(s): [ ] perforated small bowel is a complication of laparoscopic cholecystectomy [ ] perforated small bowel is not a complication of laparoscopic cholecystectomy [ XX ] Other diagnosis please specify Defer to specialist - please query Operative surgeon [ ] Unable to determine In addition, please specify: Present on Admission (POA): [ ] Yes [ ] No [ XX ] Unable to determine CLINICAL INDICATORS - SIGNS / SYMPTOMS / LABS PN 09/08 Dr. Sharif pg.1- she is status post laparoscopic cholecystectomy that developed post op ileus abd there was concern for possible bowel injury due to adhesions to the gallbladder during surgery PN 09/08 Dr. Jean pg.1- recurrent abdominal pain found to be caused by a chronic and acute cholecystitis and cholelithiasis status post lap pauline now with some complication with retained gas in her GI tract PN 09/09 pg 1-developing abdominal wall abscess RISK FACTORS Status post laparoscopic cholecystectomy OP Report 09/08 pg.1 Perforated small bowel with bile peritonitis- OP Report 09/08 pg.1 Acute on chronic cholecystitis with cholelithiasis- PN 09/08 Dr. Jean pg.1 69 years old female HP 09/04 pg 1 Smoker HP 09/04 pg 1 s/p EGD with biopsy OP Note 09/04 pg 1 Postop ileus PN 09/08 pg 1 TREATMENT: Exploratory laparotomy- OP Report 09/08 pg.1 Extensive adhesiolysis-OP Report 09/08 pg.1 Small bowel resection 2 with primary anastomosis-OP Report 09/08 pg.1 Abdominal washout and closure-OP Report 09/[address] Collected 09/06 IVF PN 09/08 pg 2 NGT for decompression-PN 09/09 pg 1 Encourage ambulation DS 09/15 pg 5 Zosyn 3.375gm IV- MAR 09/06 (This form is maintained as a part of the permanent medical record) 2014 [employer], [employer]. All Rights Reserved Jhonyn [email or web address] [not provided] MTDD
--- NOTE | 2019-09-18 19:25 | DIS ---
DATE OF ADMISSION: 09/04/2019 DATE OF DISCHARGE: 09/15/2019 ADMISSION DIAGNOSES: 1. Acute on chronic cholecystitis with cholelithiasis. 2. Acute peritonitis. 3. Perforated small bowel with bile peritonitis. 4. Extensive intraabdominal adhesions. PROCEDURES: 1. Laparoscopic cholecystectomy. 2. Exploratory laparotomy. 3. Extensive adhesiolysis. 4. Segmental small bowel resection x2 with primary anastomosis. 5. Placement of feeding nasojejunal tube. 6. Abdominal washout and closure. 7. EGD with biopsies. SUMMARY: The patient is a 69-year-old woman who presented to the emergency department with intermittent postprandial epigastric pain x4 months. She underwent evaluation and examination and was noted to have acute cholecystitis with cholelithiasis. The patient would undergo her laparoscopic cholecystectomy and she did well on this procedure until postop day #3 when she developed acute peritonitis, she underwent emergent exploratory laparotomy with extensive adhesiolysis and small bowel resection x2 with primary anastomosis. The patient had an expected postoperative ileus after this, which eventually resolved after a few days. The patient would eventually be discharged home with home health. She declined inpatient rehab stay, but at time of discharge, she was tolerating a diet. Her bowel function had returned. Her pain was controlled and she was ambulating with minimal assistance. She will follow up with Dr. Goldberg in one week, sooner as needed. She was also instructed to follow up with GI per their instructions and follow up with her primary care provider as needed. Job ID: [id number]
--- NOTE | 2019-09-22 19:42 | PQF ---
[employer] Career Resource Technician Crystal Reports Winform ViewerZEYAD ROY JOSHUA HAILE Isaura [id number] [facility]248 [id number] CLINICAL DOCUMENTATION CLARIFICATION FORM: POST DISCHARGE Addendum to original discharge summary date: ____ Late entry note date: __ DATE: 09/22/19 ATTN: Joshua Blankenship Please exercise your independent, professional judgment in responding to the clarification form. Clinical indicators are provided on the bottom of this form for your review Can you pleas further specify if perforated small bowel is a complication of laparoscopic cholecystectomy or not? Please check appropriate box(s): [ x ] perforated small bowel is a complication of laparoscopic cholecystectomy [ ] perforated small bowel is not a complication of laparoscopic cholecystectomy [ ] Other diagnosis please specify [ ] Unable to determine In addition, please specify: Present on Admission (POA): [ ] Yes [ x] No [ ] Unable to determine CLINICAL INDICATORS - SIGNS / SYMPTOMS / LABS PN 1018 Dr. Sharif pg.1- "she is status post laparoscopic cholecystectomy that developed post op ileus abd there was concern for possible bowel injury due to adhesions to the gallbladder during surgery" PN 1018 Dr. Jean pg.1- "recurrent abdominal pain found to be caused by a chronic and acute cholecystitis and cholelithiasis status post lap chore now with some complication [place] [id number] pg 1-"developing abdominal wall abscess" RISK FACTORS Status post laparoscopic cholecystectomy OP Report 09/08 pg.1 Perforated small bowel with bile peritonitis- OP Report 09/08 pg.1 Acute on chronic cholecystitis with cholelithiasis- PN 1018 Dr. Jean pg.1 69 [place] [id number] pg 1 Smoker HP 09/04 pg 1 s/p EGD with biopsy OP Note 09/04 pg 1 Postop ileus PN 09/08 pg 1 TREATMENT: Exploratory laparotomy- OP Report 09/08 pg.1 Extensive adhesiolysis-OP Report 09/08 pg.1 Small bowel resection 2 with primary anastomosis-OP Report 09/08 pg.1 Abdominal washout and closure-OP Report 09/[address] Collected 09/06 IVF PN 09/08 pg 2 Encourage ambulation DS 09/15 pg 5 Zosyn 3.375gm IV- MAR 09/06 (This form is maintained as a part of the permanent medical record) 2014 [employer]. All Rights Reserved Jhonny [email or web address] [not provided] MTDD
== END 2019-09-15 15:55 | disposition home health service (06) | DRG 417 ==
LOC: ERS 03:32 → OBSVTOIN 05:24 → 2SW 05:24 → SURG B 09-08 15:20 → CCU 09-09 01:58 → SURG B 09-09 18:17
PROVIDERS: ADMIT Hospitalist; ATTEND Hospitalist
PROC: 0DB78ZX Excision of Stomach, Pylorus, Via Natural or Artificial Opening Endoscopic, Diagnostic (ICD-10-PCS; principal; 2019-09-04)
PROC: 3E02340 Introduction of Influenza Vaccine into Muscle, Percutaneous Approach (ICD-10-PCS; 2019-09-04)
PROC: 0FT44ZZ Resection of Gallbladder, Percutaneous Endoscopic Approach (ICD-10-PCS; 2019-09-05)
PROC: 0DNW0ZZ Release Peritoneum, Open Approach (ICD-10-PCS; 2019-09-08)
PROC: 0DB80ZZ Excision of Small Intestine, Open Approach (ICD-10-PCS; 2019-09-08)
PROC: 0D9W00Z Drainage of Peritoneum with Drainage Device, Open Approach (ICD-10-PCS; 2019-09-08)
DX: K80.12 Calculus of gallbladder with acute and chronic cholecystitis without obstruction (principal); K65.3 Choleperitonitis; J95.821 Acute postprocedural respiratory failure; K63.1 Perforation of intestine (nontraumatic); K56.7 Ileus, unspecified; K91.89 Other postprocedural complications and disorders of digestive system; L02.211 Cutaneous abscess of abdominal wall; E87.2 Acidosis; Z23 Encounter for immunization; K29.70 Gastritis, unspecified, without bleeding; M81.0 Age-related osteoporosis without current pathological fracture; F17.210 Nicotine dependence, cigarettes, uncomplicated; R07.89 Other chest pain; K21.9 Gastro-esophageal reflux disease without esophagitis; K59.00 Constipation, unspecified; E87.6 Hypokalemia; D72.829 Elevated white blood cell count, unspecified; E83.39 Other disorders of phosphorus metabolism; K66.0 Peritoneal adhesions (postprocedural) (postinfection); Y83.8 Other surgical procedures as the cause of abnormal reaction of the patient, or of later complication, without mention of misadventure at the time of the procedure; E83.51 Hypocalcemia; E83.42 Hypomagnesemia; Z90.710 Acquired absence of both cervix and uterus; Z79.899 Other long term (current) drug therapy
CPT/HCPCS: 36415; 36416; 71045; 71275; 74018; 74160; 76700; 80048; 80053; 80076; 81003; 81015; 82533; 82550; 82805; 83605; 83690; 83735; 83880; 84100; 84484; 85007; 85025; 85027; 85379; 85610; 86850; 86900; 86901; 88304; 88305; 88307; 88312; 93005; 94002; 94640; 96374; C9113; J0131; J0694; J1100; J1200; J1450; J1650; J1885; J1940; J2001; J2250; J2270; J2405; J2543; J2550; J2704; J3010; J3475; J3480; J3490; J7050; J7620; Q9966; S0028

== ENCOUNTER 2021-12-27 09:39 | Outpatient (CLI) | payer MEDICARE ==
[2021-12-27 14:42] LABS: #Basophils 0.1 thou/uL (0.0-0.2); #Eosinphils 0.2 thou/uL (0.0-0.7); #Lymphocytes 3.2 thou/uL (1.20-3.40); #Monocytes 0.9 thou/uL (0.11-0.59); #Neutrophils 6.8 thou/uL (1.40-6.50); %Basophils 0.6 % (0.0-1.0); %Eosinophils 1.5 % (0.0-10.0); %Lymphocytes 28.6 % (21.0-51.0); %Monocytes 7.7 % (0.0-10.0); %Neutrophils 61.6 % (42.0-75.0); Hemoglobin 15.1 g/dL (12.0-16.0); Mean Corpuscular HGB CONC 31.7 g/dL (32.0-36.0); Mean Corpuscular Hemoglobin 29.7 pg (27.0-31.0); Mean Corpuscular Volume 93.6 fL (78.0-98.0); Mean Platelet Volume 8.2 fL (7.4-10.4); Platelet Count 363 thou/uL (130-400); Red Blood Cell (RBC) Count 5.08 mill/uL (4.20-5.40); White Blood Cell (WBC) Count 11.1 thou/uL (4.8-10.8)
[2021-12-27 14:43] LABS: Hemoglobin A1c 5.7 % (4.0-6.0)
[2021-12-27 15:02] LABS: ALT (SGPT) 16 U/L (8-55); AST (SGOT) 15 U/L (5-34); Albumin 4.2 g/dL (3.4-4.8); Alkaline Phosphatase 74 U/L (40-110); Anion Gap 15 mmol/L (10-20); BUN (Urea Nitrogen) 12 mg/dL (9.8-20.1); Bilirubin, Total 0.5 mg/dL (0.2-1.2); Calc. Creatinine Clearance 0 mL/min (70-130); Calcium 9.6 mg/dL (7.8-10.44); Carbon Dioxide 23 mmol/L (23-31); Cardiac Risk 5.7 (Less than 4.5); Chloride 106 mmol/L (98-107); Cholesterol 260 mg/dl (< 200 Desired); Globulin 2.9 g/dL (2.4-3.5); Glucose 120 mg/dL (83-110); HDL Cholesterol 46 mg/dL (>60 Neg Risk); LDL Cholesterol, Calculated 186 mg/dL; Potassium 4.5 mmol/L (3.5-5.1); Protein, Total 7.1 g/dL (5.8-8.1); Sodium 139 mmol/L (136-145); Triglycerides 140 mg/dL (Less than 150)
[2021-12-27 15:08] LABS: Free T4 (Free Thyroxine) 1.1 ng/dL (0.70-1.48); Thyroid Stimulating Hormone 2.2422 uIU/mL (0.35-4.94)
== END 2021-12-27 09:40 | disposition home or self-care (01) ==
LOC: SCSRAD 09:39
PROVIDERS: ATTEND Family Medicine
DX: R06.02 Shortness of breath (principal); R60.1 Generalized edema; R07.89 Other chest pain
CPT/HCPCS: 36415; 71046; 80053; 80061; 83036; 83880; 84439; 84443; 85025

== ENCOUNTER 2023-09-08 13:44 | Inpatient (IN) | payer OTHER ==
[2023-09-08] MEDS ORDERED: Morphine 4 MG/ML VIAL ONE (15:32)
[2023-09-08 16:02] LABS: #Basophils 0.1 thou/uL (0.0-0.2); #Eosinphils 0.1 thou/uL (0.0-0.7); #Monocytes 0.9 thou/uL (0.11-0.59); #Neutrophils 10.8 thou/uL (1.40-6.50); %Basophils 0.6 % (0.0-1.0); %Eosinophils 0.5 % (0.0-10.0); %Lymphocytes 19.4 % (21.0-51.0); %Monocytes 5.9 % (0.0-10.0); %Neutrophils 73.2 % (42.0-75.0); Hematocrit 47.3 % (36.0-47.0); Hemoglobin 15.5 g/dL (12.0-16.0); Mean Corpuscular HGB CONC 32.8 g/dL (32.0-36.0); Mean Corpuscular Hemoglobin 29.8 pg (27.0-31.0); Platelet Count 375 10x3/uL (130-400); RBC Distribution Width 12.8 % (11.5-14.5); White Blood Cell (WBC) Count 14.7 10x3/uL (4.8-10.8)
[2023-09-08 16:15] LABS: PTT 27.4 sec (22.9-36.1)
[2023-09-08 17:00] LABS: ALT (SGPT) 16 U/L (8-55); AST (SGOT) 14 U/L (5-34); Albumin 4.6 g/dL (3.4-4.8); Alkaline Phosphatase 73 U/L (40-110); Anion Gap 14 mmol/L (10-20); BUN (Urea Nitrogen) 10 mg/dL (9.8-20.1); Bilirubin, Total 0.4 mg/dL (0.2-1.2); Calc. Creatinine Clearance 0 mL/min (70-130); Calcium 10.1 mg/dL (7.8-10.44); Carbon Dioxide 25 mmol/L (23-31); Chloride 105 mmol/L (98-107); Estimated GFR 70; Globulin 3.2 g/dL (2.4-3.5); Glucose 109 mg/dL (83-110); Potassium 3.9 mmol/L (3.5-5.1); Protein, Total 7.8 g/dL (5.8-8.1); Sodium 140 mmol/L (136-145)
[2023-09-08] MEDS ORDERED: Ketorolac Tromethamine 30 MG/ML VIAL ONE (17:18)
[2023-09-08] MEDS ORDERED: Ondansetron PF 4 MG/2 ML Vial ONE (17:18)
[2023-09-08] MEDS ORDERED: hydrALAZINE 20 MG/ML VIAL SLOW IVP PRN (17:45)
[2023-09-08] MEDS ORDERED: Ondansetron ODT 4 MG TAB PO PRN (17:45)
[2023-09-08] MEDS ORDERED: Ipratropium/Albuterol 3 ML NEB NEB PRN (17:45)
[2023-09-08] MEDS ORDERED: traMADol HCl 50 MG TAB PO PRN (17:45)
[2023-09-08] MEDS ORDERED: TETANUS, DIPHTHERIA TOX,ADULT (TDVAX) 0.5 ML VIAL IM ONE (17:45)
[2023-09-08 18:19] VITALS: BMI 29.0
[2023-09-08] MEDS: Acetaminophen 325 MG TAB PO SCH (18:35)
[2023-09-08] MEDS: Sodium Chloride 0.9% 1,000 ML IV SCH (18:35)
[2023-09-08] MEDS: Morphine 2 MG/ML VIAL SLOW IVP PRN ×2 (20:18→22:49)
[2023-09-08] MEDS: Famotidine 20 MG TAB PO SCH (20:18)
[2023-09-09] MEDS: Morphine 2 MG/ML VIAL SLOW IVP PRN ×2 (01:18→08:42)
[2023-09-09] MEDS: Acetaminophen 325 MG TAB PO SCH ×5 (01:19→23:28)
[2023-09-09] MEDS: Sodium Chloride 0.9% 1,000 ML IV SCH ×3 (04:30→23:31)
[2023-09-09] MEDS: Famotidine 20 MG TAB PO SCH ×2 (08:19→20:14)
[2023-09-09] MEDS: Senokot S 8.6-50 MG TAB PO SCH ×2 (08:54→20:14)
[2023-09-09] MEDS ORDERED: Bupivacaine PF 0.5% 30 ML VIAL ONE (14:07)
[2023-09-09] MEDS ORDERED: Midazolam HCl 2 mg/2 ml Vial ONE (14:07)
[2023-09-09] MEDS ORDERED: fentaNYL 50 mcg/mL 1 mL Vial ONE (14:07)
[2023-09-09] MEDS ORDERED: fentaNYL PF 100 MCG/2 ML SYRINGE ONE (14:36)
[2023-09-09] MEDS ORDERED: fentaNYL 50 mcg/mL 1 mL Vial SLOW IVP PRN (14:41)
[2023-09-09] MEDS ORDERED: Ondansetron PF 4 MG/2 ML Vial IVP PRN (14:45)
[2023-09-09] MEDS ORDERED: HYDROcodone/Acetaminophen 10/325 mg Tablet PO PRN ×2 (14:45)
[2023-09-09] MEDS ORDERED: Promethazine HCl 25 MG/ML VIAL IM PRN ×2 (14:45→16:28)
[2023-09-09] MEDS ORDERED: Ropivacaine 0.2% 550 ML 550 ML NERVE BLCK SCH (14:45)
[2023-09-09] MEDS ORDERED: Zolpidem Tartrate 5 MG TAB PO PRN (14:45)
[2023-09-09] MEDS ORDERED: traMADol HCl 50 MG TAB PO PRN ×2 (14:45)
[2023-09-09] MEDS ORDERED: CEFAZOLIN 2 GM VIAL ONE (14:51)
[2023-09-09] MEDS ORDERED: Sodium Chloride 0.9% 100 ML ONE (14:51)
[2023-09-09] MEDS ORDERED: Albuterol HFA (OR) 200 PUFF INH ONE ×2 (15:06→15:07)
[2023-09-09] MEDS ORDERED: Lidocaine 1% PF 5 ML VIAL ONE (15:07)
[2023-09-09] MEDS ORDERED: Rocuronium Bromide 10 MG/ML (10ML VIAL) ONE (15:07)
[2023-09-09] MEDS ORDERED: Bupivacaine HCl 0.5%/Epinephrine 1:200,000/PF 30 ml Vial ONE (15:07)
[2023-09-09] MEDS ORDERED: Ondansetron PF 4 MG/2 ML Vial ONE (15:07)
[2023-09-09] MEDS ORDERED: PHENYLEPHRINE-NS 100 MCG/ML 10 ML SYRINGE ONE (15:07)
[2023-09-09] MEDS ORDERED: Dexamethasone 20 MG/5 ML VIAL ONE (15:07)
[2023-09-09] MEDS ORDERED: PROPOFOL 200 MG/20 ML VIAL ONE (15:07)
[2023-09-09] MEDS ORDERED: SUGAMMADEX SODIUM 200 MG/2 ML VIAL ONE (15:47)
[2023-09-09] MEDS ORDERED: Morphine 2 MG/ML VIAL SLOW IVP PRN (16:07)
[2023-09-09] MEDS ORDERED: Morphine 4 MG/ML VIAL SLOW IVP PRN (16:07)
[2023-09-09] MEDS ORDERED: Communication Order-Pharmacy FS SCH (16:15)
[2023-09-09] MEDS ORDERED: Ondansetron HCl/PF 4 MG/2 ML Vial IVP PRN (16:28)
[2023-09-09] MEDS ORDERED: HYDROmorphone 2 MG/ML VIAL SLOW IVP PRN (16:28)
[2023-09-09] MEDS: Aspirin 81 mg Enteric Coated Tablet PO SCH (20:13)
[2023-09-09] MEDS: CEFAZOLIN 2 GM in Sodium Chloride 0.9% 100 ML IVPB SCH (21:16)
[2023-09-10] MEDS: Acetaminophen 325 MG TAB PO SCH ×3 (05:43→18:02)
[2023-09-10] MEDS: CEFAZOLIN 2 GM in Sodium Chloride 0.9% 100 ML IVPB SCH (05:43)
[2023-09-10] MEDS: Polyethylene Glycol 3350 17 GM Packet PO SCH (08:59)
[2023-09-10] MEDS: Aspirin 81 mg Enteric Coated Tablet PO SCH ×2 (08:59→20:37)
[2023-09-10] MEDS: Famotidine 20 MG TAB PO SCH ×2 (08:59→20:37)
[2023-09-10] MEDS: Senokot S 8.6-50 MG TAB PO SCH ×2 (08:59→20:37)
[2023-09-10] MEDS: Sodium Chloride 0.9% 1,000 ML IV SCH ×2 (11:25→20:38)
[2023-09-11] MEDS: Acetaminophen 325 MG TAB PO SCH ×3 (00:38→12:09)
[2023-09-11] MEDS: Sodium Chloride 0.9% 1,000 ML IV SCH (05:45)
[2023-09-11 05:48] LABS: Hematocrit 38.6 % (36.0-47.0); Hemoglobin 12.4 g/dL (12.0-16.0); Mean Corpuscular HGB CONC 32.1 g/dL (32.0-36.0); Mean Corpuscular Hemoglobin 30.1 pg (27.0-31.0); Mean Corpuscular Volume 93.7 fl (78.0-98.0); Mean Platelet Volume 10.4 fL (7.4-10.4); Platelet Count 312 10x3/uL (130-400); RBC Distribution Width 13.2 % (11.5-14.5); Red Blood Cell (RBC) Count 4.12 mill/uL (4.20-5.40); White Blood Cell (WBC) Count 13.4 10x3/uL (4.8-10.8)
[2023-09-11 06:20] LABS: ALT (SGPT) 66 U/L (8-55); AST (SGOT) 27 U/L (5-34); Albumin 3.8 g/dL (3.4-4.8); Alkaline Phosphatase 68 U/L (40-110); Anion Gap 13 mmol/L (10-20); BUN (Urea Nitrogen) 16 mg/dL (9.8-20.1); Bilirubin, Total 0.4 mg/dL (0.2-1.2); Calc. Creatinine Clearance 65 mL/min (70-130); Calcium 8.9 mg/dL (7.8-10.44); Carbon Dioxide 24 mmol/L (23-31); Chloride 110 mmol/L (98-107); Estimated GFR 76; Globulin 2.1 g/dL (2.4-3.5); Glucose 118 mg/dL (83-110); Potassium 3.6 mmol/L (3.5-5.1); Protein, Total 5.9 g/dL (5.8-8.1); Sodium 143 mmol/L (136-145)
[2023-09-11 06:31] LABS: Delete Auto Diff?? YES; Manual Diff?? YES
[2023-09-11 06:53] LABS: Band 8 % (5-11); CellaVision Operator ID LAB.GE; Lymphocytes 36 % (21-51); Monocytes 7 % (0-10); Neutrophil 49 % (42-75); Platelet Adequacy Comment Platelets Normal; Polychromasia SLIGHT = 2-3 cells HPF (0-2); Smudge Cells 15.8 %; Total Cell Count 101
[2023-09-11] MEDS: Senokot S 8.6-50 MG TAB PO SCH (09:19)
[2023-09-11] MEDS: Aspirin 81 mg Enteric Coated Tablet PO SCH (09:19)
[2023-09-11] MEDS: Famotidine 20 MG TAB PO SCH (09:19)
[2023-09-11] MEDS: Polyethylene Glycol 3350 17 GM Packet PO SCH (09:20)
[2023-09-11 13:19] VITALS: BP 105/67; TEMP 97.9
== END 2023-09-11 17:24 | disposition home or self-care (01) | DRG 505 ==
LOC: ERS 13:44 → SURG B 15:58
PROVIDERS: ADMIT Specialist; ATTEND Specialist
PROC: 0QSLXZZ Reposition Right Tarsal, External Approach (ICD-10-PCS; principal; 2023-09-08)
PROC: 0QSL04Z Reposition Right Tarsal with Internal Fixation Device, Open Approach (ICD-10-PCS; 2023-09-09)
DX: S92.031A Displaced avulsion fracture of tuberosity of right calcaneus, initial encounter for closed fracture (principal); W17.89XA Other fall from one level to another, initial encounter; Z90.710 Acquired absence of both cervix and uterus; Z98.890 Other specified postprocedural states; M81.0 Age-related osteoporosis without current pathological fracture; F17.210 Nicotine dependence, cigarettes, uncomplicated; Z79.899 Other long term (current) drug therapy; Z60.2 Problems related to living alone
CPT/HCPCS: 28400; 36415; 80053; 85025; 85610; 85730; 93005; 96372; 96374; 96375; A4306; C1713; J1100; J1885; J2250; J2270; J2272; J2405; J2704; J2795; J3010; J3490; J7050; S0020

== ENCOUNTER 2025-11-29 13:10 | Outpatient (CLI) | payer OTHER | END 2025-11-29 13:11 | disposition home or self-care (01) | LOC: RAD 13:10 | PROVIDERS: ATTEND Orthopaedic Surgery Hand Surgery | DX: M79.642 Pain in left hand (principal) ==